=== PATIENT | male | born 1960 | race Two or more races ===

== ENCOUNTER 2025-01-14 18:31 | Inpatient (IN) | payer OTHER, MEDICAID ==
[~2025-01-14] VITALS: Ht 157.5 cm; Wt 50.9 kg
--- NOTE | 2025-01-14 20:08 | DVH ---
Procedure: XY NECK FOR SOFT TISSUE Exam Date: 01/14/2025 07:08 PM History: foreignbody Comparison Study: None Technique: Soft Tissue Neck: AP and lateral views, 3 images. Findings: No evidence of soft tissue swelling or radiopaque foreign body. Epiglottis appears normal. Vascular calcifications. Multilevel spondylosis without acute osseous finding. Unremarkable lung apices. Impression: 1. No radiographic abnormality of the neck soft tissues.
[2025-01-14 20:34] VITALS: PULSE 109; RESP 20; O2SAT 99
[2025-01-14] MEDS: GLUCAGON EMERG KIT 1mg/1ml IM ONE (20:58)
[2025-01-14] MEDS: SODIUM CHLORIDE 0.9% 1,000 ML IV ONE (20:58)
[2025-01-14 21:07] LABS: Hematocrit 41.1 % (41.0-53.0); Hemoglobin 13.8 g/dL (13.5-17.5); Mean Corpuscular Hemoglobin 31.9 pg (28.0-32.0); Mean Corpuscular Volume 94.8 fL (80.0-100.0); Nucleated Red Blood Cells % 0.1 %
--- NOTE | 2025-01-14 21:11 | ED.PDOC ---
History of Present Illness HPI Comments 64 y/o Vincentian speaking M presents with c/c of indigestion of foreign body, with associated throat irritation, difficulty swallowing, and mild shortness of breath. Patient reports on eating Tacos 2 hours ago when he began developing a sensation in his throat on the food item being stuck. Denial of any further acute symptoms. Upon arrival to ED triage, patient was found hypertensive and hyperglycemic at 164/52 and 350, respectively. Chief Complaint: Foreign Body Time Seen by MD: 21:00 Primary Care Provider: NONE Reviewed Notes: Nurses Notes, Medications, Allergies Allergies: Coded Allergies: NO KNOWN ALLERGIES (Unverified , 10/07/14) Information Source: Patient Mode of Arrival: Ambulatory Severity: Moderate Timing: Hours Duration: Since onset Prehospital treatment: None Past Medical History PAST MEDICAL HISTORY: DM, HTN Family History Family History: Unobtainable Social History Smoker: Non-Smoker Alcohol: Rarely Drugs: Denies Drug Use Lives In: Home All Other Systems: Reviewed and Negative (Comprehensive systems review obtained and negative except for what is stated in the HPI.) Physical Exam General Appearance: Moderate Distress HEENT: Normal ENT Inspection, Pharynx Normal, TMs Normal Neck: Full Range of Motion, Non-Tender, Normal, Normal Inspection Respiratory: Chest Non-Tender, Lungs Clear, No Accessory Muscle Use, No Respiratory Distress, Normal Breath Sounds Cardiovascular: No Edema, No JVD, No Murmur, No Gallop, Normal Peripheral Pulses, Regular Rate/Rhythm Breast Exam: Deferred Gastrointestinal: No Organomegaly, Non Tender, No Pulsatile Mass, Normal Bowel Sounds, Soft Genitalia: Deferred Pelvic: Deferred Rectal: Deferred Extremities: No calf tenderness, Normal capillary refill, Normal inspection, Normal range of motion, Non-tender, No pedal edema Musculoskeletal : Apperance: Normal Neurologic: Alert, graduate internship II-XII nml as Tested, No Motor Deficits, Normal Affect, Normal Mood, No Sensory Deficits Cerebellar Function: Normal Reflexes: Normal Skin: Dry, Normal Color, Warm Peripheral Pulses: 3+ Radial (R), 3+ Radial (L) Lymphatic: No Adenopathy Was a procedure done? Was a procedure done?: No Differential Dx Considerations may include: foreign body X-Ray, Labs, Meds, VS Vital Signs Date Time Temp Pulse Resp B/P (MAP) Pulse Ox O2 Delivery O2 Flow Rate FiO2 01/14/25 20:34 109 20 99 Room Air* 0 21 01/14/25 20:34 98.3 109 20 123/60 (81) 99 98.3 01/14/25 18:36 98.1 114 18 164/52 100 98.1 Lab Test 01/14/25 20:59 Range/Units White Blood Count 6.0 4.4-10.8 10^3/uL Red Blood Count 4.33 L 4.5-5.90 10^6/uL Hemoglobin 13.8 13.5-17.5 g/dL Hematocrit 41.1 41.0-53.0 % Mean Corpuscular Volume 94.8 80.0-100.0 fL Mean Corpuscular Hemoglobin 31.9 28.0-32.0 pg Mean Corpuscular Hemoglobin Concent 33.7 32.0-36.0 g/dL Red Cell Distribution Width 16.8 H 11.8-14.3 % Platelet Count 254 140-450 10^3/uL Mean Platelet Volume 7.7 6.9-10.8 fL Neutrophils (%) (Auto) 76.1 37.0-80.0 % Lymphocytes (%) (Auto) 16.9 10.0-50.0 % Monocytes (%) (Auto) 6.0 0.0-12.0 % Eosinophils (%) (Auto) 0.5 0.0-7.0 % Basophils (%) (Auto) 0.5 0.0-2.0 % Neutrophils # (Auto) 4.5 1.6-8.6 10 ^3/uL Lymphocytes # (Auto) 1.0 0.4-5.4 10 ^3/uL Monocytes # (Auto) 0.4 0-1.3 10 ^3/uL Eosinophils # (Auto) 0 0-0.8 10 ^3/uL Basophils # (Auto) 0 0-0.2 10 ^3/uL Nucleated Red Blood Cells 0.1 % Sodium Level 141 136-145 mmol/L Potassium Level 4.3 3.5-5.1 mmol/L Chloride Level 105 98-107 mmol/L Carbon Dioxide Level 19 L 20-31 mmol/L Anion Gap 17 H 5-15 Blood Urea Nitrogen 11 9-23 mg/dL Creatinine 1.09 0.700-1.30 mg/dL Glomerular Filtration Rate Calc 75 >90 mL/min BUN/Creatinine Ratio 10.1 10.0-20.0 Serum Glucose 510 *H 74-106 mg/dL Calcium Level 9.9 8.7-10.4 mg/dL Current Medications Medications (Trade) Dose Ordered Sig/Mallorie Route Start Time Stop Time Status Last Admin Sodium Chloride 1,000 ml @ 1,000 mls/hr Q1H ONCE IV 01/14/25 21:00 01/14/25 21:59 01/14/25 21:00 [place] [id number] Ph: [phone] DIAGNOSTIC IMAGING Diagnostic Imaging Report : [id number] Signed PATIENT: CIELO JOAQUIN ACCT: [id number] UNIT: [id number] : 1960 LOC: ER ROOM / BED: / AGE / SEX: 64 / M ADM STATUS: REG ER SERVICE 04 ORDERING PHYSICIAN: MOHAMUD CELAYA MD PROCEDURE(s): NECK - NECK FOR SOFT TISSUE REASON: foreignbody ORDER NUMBER(s): [id number], ACCESSION NUMBER(s): [id number] Procedure: XY NECK FOR SOFT TISSUE Exam Date: 01/14/2025 07:08 PM History: foreignbody Comparison Study: None Technique: Soft Tissue Neck: AP and lateral views, 3 images. Findings: No evidence of soft tissue swelling or radiopaque foreign body. Epiglottis appears normal. Vascular calcifications. Multilevel spondylosis without acute osseous finding. Unremarkable lung apices. Impression: 1. No radiographic abnormality of the neck soft tissues. ATED BY: MARY QUIROGA MD DICTATED DATE/TIME: 01/14/252004 SIGNED BY: MARY QUIROGA MD SIGNED DATE/TIME: 01/14/252004 CC: Patient alert. Vitals stable. Chest x-ray reviewed does not show any acute changes. Answering questions. Swallowing. No sign of distress. Blood sugar elevated. Establish intravenous access. Was given fluids. Was given insulin. As per foreign body sensation he was given glucagon. Explained to the patient. Continue monitoring. Time of 1ST Reevaluation: 21:30 Reevaluation 1ST: Unchanged Patient Education/Counseling: Diagnosis, Treatment, Need For Follow Up Family Education/Counseling: No Family Present SEPSIS Sepsis Screen Date sepsis recognized/suspect: Jan 14, 2025 Time Sepsis recognized/suspect: 2037 Recent Procedure: No On Antibiotic Therapy: No Respiratory Rate >20: No Heart Rate >90: Yes Temp<36 C (96.8 F) or >38.3 C: No SBP <90 or MAP <65 mmHG: No New Acute Mental Status Change: No Is the patient on CPAP, BIPAP,: No Physician Orders Neck For Soft Tissue (01/14/25 19:05) Sodium Chloride 0.9% (01/14/25 21:00) Vital Signs Date Time Temp Pulse Resp B/P (MAP) Pulse Ox O2 Delivery O2 Flow Rate FiO2 01/14/25 20:34 109 20 99 Room Air* 0 21 01/14/25 20:34 98.3 109 20 123/60 (81) 99 98.3 01/14/25 18:36 98.1 114 18 164/52 100 98.1 Laboratory Tests Test 01/14/25 20:59 White Blood Count 6.0 10^3/uL (4.4-10.8) Medications Medications Dose Ordered Sig/Mallorie Route Start Time Stop Time Status Last Admin Dose Admin Sodium Chloride 1,000 ml @ 1,000 mls/hr Q1H ONCE IV 01/14/25 21:00 01/14/25 21:59 01/14/25 21:00 Departure 1 Departure Time of Disposition: 21:32 Impression: Primary Impression: Uncontrolled diabetes mellitus Qualified Codes: E13.65 - Other specified diabetes mellitus with hyperglycemia Additional Impressions: HTN (hypertension) Qualified Codes: I10 - Essential (primary) hypertension Sensation of foreign body Disposition: ADMITTED INPATIENT Admit to: Med Surg Condition: Guarded Critical Care Note Critical Care Time?: Yes (90 min-critical care time only) Stability Stability form required: No Heart Score Heart Score: Heart Score Response (Comments) Value History N/A 0 EKG N/A 0 Age N/A 0 Risk Factors N/A 0 Troponin N/A 0 Total 0 I personally scribed for MOHAMUD CELAYA MD ([email or web address]) on 01/14/25 at 21:11. Electronically submitted by Celso Martel ([email or web address]). MOHAMUD CELAYA MD Jan 14, 2025 21:11
[2025-01-14 21:18] LABS: Chloride 105 mmol/L (98-107); Potassium 4.3 mmol/L (3.5-5.1); Sodium 141 mmol/L (136-145)
[2025-01-14 21:19] LABS: Anion Gap 17 (5-15); Calcium 9.9 mg/dL (8.7-10.4)
[2025-01-14 21:23] LABS: Carbon Dioxide 19 mmol/L (20-31)
[2025-01-14 21:24] LABS: BUN/Creatinine Ratio 10.1 (10.0-20.0); Blood Urea Nitrogen 11 mg/dL (9-23)
[2025-01-14 21:29] LABS: Glucose 510 mg/dL (74-106)
[2025-01-14] MEDS ORDERED: MORPHINE SULFATE INJ 2 MG/ml SYRG IV PRN (23:45)
[2025-01-14] MEDS ORDERED: NITROGLYCERIN 0.4 MG SL TAB SL PRN (23:45)
--- NOTE | 2025-01-14 23:52 | DVHHP2 ---
History of Present Illness History of Present Illness Patient is 64-year-old male with past medical history of diabetes mellitus type 2, hypertension, hyperlipidemia came to the hospital with a chief complaint of choking like sensation while eating at restaurants. At the time of evaluation in emergency department, patient's symptoms over the time improved, however abnormal laboratory findings including elevated blood sugar level at 510, anion gap elevated at 17, bicarbonate low at 19. As per patient he takes antihyperglycemic medication including Januvia and metformin, not taking insulin. As per patient he is compliant with medication, denying any other symptoms including fever, chills, chest pain, abdominal pain, bowel or bladder irregularity or any other symptoms. Past medical history: Diabetes mellitus type 2, hypertension, hyperlipidemia Past surgical history: As per patient he had some kind of liver cyst removal, not sure about precise diagnosis Personal history: Denies smoking or any kind of drug use Allergy: None Family history: None Home medication: Patient did not recall, as per EMR records, benzoate 100 mg p.o. as needed, Januvia 100 mg p.o., ferrous sulfate 325 mg p.o. b.i.d., metformin 1000 IU once daily, losartan 50 mg p.o. daily, Claritin 10 mg as needed, famotidine 20 mg two tablets, aspirin 81 mg p.o. daily, gabapentin 300 m g p.o., atorvastatin 40 mg p.o. daily, right big ulcers 10 mg tablet every day, ondansetron 4 mg p.o. as needed. Review of Systems Constitutional: No: Fever, Chills, Sweats, Weakness, Malaise, Other Eyes: No: Pain, Vision change, Conjunctivae inflammation, Eyelid inflammation, Other, Redness ENT: No: Ear pain, Ear discharge, Nose pain, Nose discharge, Nose congestion, Mouth pain, Mouth swelling, Throat pain, Throat swelling, Other Respiratory: No: Cough, Dry, Shortness of breath, SOB with excertion, Wheezing, Hemoptysis, Pleuritic Pain, Sputum, Wheezing, Other Cardiovascular: No: Chest Pain, Palpitations, Orthopnea, Paroxysmal Noc. Dyspn ea, Edema, Lt Headedness, Other Gastrointestinal: No: Nausea, Vomiting, Abdominal Pain, Diarrhea, Constipation, Melena, Hematochezia, Other Genitourinary: No Dysuria, No Frequency, No Incontinence, No Hematuria, No Retention, No Other Musculoskeletal: No: other, neck pain, shoulder pain, arm pain, back pain, hand pain, leg pain, foot pain Skin: No: Rash, Lesions, Jaundice, Bruising, Other Neurological: No: Weakness, Numbness, Incoordination, Change in speech, Confusion, Seizures, Other Allergies: Coded Allergies: NO KNOWN ALLERGIES (Unverified , 10/07/14) Medications Current Medications Medications Dose Ordered Sig/Mallorie Route Start Time Stop Time Status Last Admin Dose Admin Nitroglycerin 0.4 mg Q5MINP PRN SL 01/14/25 23:45 Morphine Sulfate 2 mg Q30M PRN IV 01/14/25 23:45 Exam Vital Signs Vital Signs Date Time Temp Pulse Resp B/P (MAP) Pulse Ox O2 Delivery O2 Flow Rate FiO2 01/14/25 23:15 98.3 99 14 123/58 (79) 99 98.3 01/14/25 20:34 Room Air* 0 21 Exam General Appearance: Cooperative. Moderately developed. Head Exam: Normal inspection Neck Exam: Normal inspection. Non-tender. Normal alignment Pulmonary/Respiratory: Chest non-tender. Clear bilateral breath sounds Cardiovascular/Chest: Regular rate and rhythm. No murmurs. No JVD. Peripheral Pulses: 2+ Radial (R). 2+ Radial (L). 2+ Pedal (R). 2+ Pedal (L) Abdominal Exam: Normal bowel sounds. Soft. Nontender. No hepatospenomegaly. No masses Ankle Exam: Negative ankle edema Lower extremities: Negative lower extremity edema Neuro/Mental Status: A&O x4. Coherent Thoughts/Psych: Normal thought pattern. Appropriate mood and affect. Good judgement and insight Appearance: In no acute distress Skin Exam: Normal inspection. Normal color. Warm. Dry Labs/Xrays Labs Test 01/14/25 20:59 Range/Units White Blood Count 6.0 4.4-10.8 10^3/uL Red Blood Count 4.33 L 4.5-5.90 10^6/uL Hemoglobin 13.8 13.5-17.5 g/dL Hematocrit 41.1 41.0-53.0 % Mean Corpuscular Volume 94.8 80.0-100.0 fL Mean Corpuscular Hemoglobin 31.9 28.0-32.0 pg Mean Corpuscular Hemoglobin Concent 33.7 32.0-36.0 g/dL Red Cell Distribution Width 16.8 H 11.8-14.3 % Platelet Count 254 140-450 10^3/uL Mean Platelet Volume 7.7 6.9-10.8 fL Neutrophils (%) (Auto) 76.1 37.0-80.0 % Lymphocytes (%) (Auto) 16.9 10.0-50.0 % Monocytes (%) (Auto) 6.0 0.0-12.0 % Eosinophils (%) (Auto) 0.5 0.0-7.0 % Basophils (%) (Auto) 0.5 0.0-2.0 % Neutrophils # (Auto) 4.5 1.6-8.6 10 ^3/uL Lymphocytes # (Auto) 1.0 0.4-5.4 10 ^3/uL Monocytes # (Auto) 0.4 0-1.3 10 ^3/uL Eosinophils # (Auto) 0 0-0.8 10 ^3/uL Basophils # (Auto) 0 0-0.2 10 ^3/uL Nucleated Red Blood Cells 0.1 % Sodium Level 141 136-145 mmol/L Potassium Level 4.3 3.5-5.1 mmol/L Chloride Level 105 98-107 mmol/L Carbon Dioxide Level 19 L 20-31 mmol/L Anion Gap 17 H 5-15 Blood Urea Nitrogen 11 9-23 mg/dL Creatinine 1.09 0.700-1.30 mg/dL Glomerular Filtration Rate Calc 75 >90 mL/min BUN/Creatinine Ratio 10.1 10.0-20.0 Serum Glucose 510 *H 74-106 mg/dL Calcium Level 9.9 8.7-10.4 mg/dL SEPSIS Sepsis Screen Date sepsis recognized/suspect: Jan 14, 2025 Time Sepsis recognized/suspect: 2037 Recent Procedure: No On Antibiotic Therapy: No Respiratory Rate >20: No Heart Rate >90: Yes Temp<36 C (96.8 F) or >38.3 C: No SBP <90 or MAP <65 mmHG: No New Acute Mental Status Change: No Is the patient on CPAP, BIPAP,: No Physician Orders Neck For Soft Tissue (01/14/25 19:05) Admit (01/14/25 23:37) Nitroglycerin Sublingual (Ntrostat Subli (01/14/25 23:45) Morphine Sulfate Injection (01/14/25 23:45) Oxygen By Nasal Cannula (01/14/25 23:37) Stat Ekg For Chest Pain (01/14/25 23:37) Notify Of Changes From Base (01/14/25 23:37) Polystyrene Bead Molder For 24 Hours (01/14/25 23:37) Emergency Dysrhythmia Protocol (01/14/25 23:37) Rhythm Strips Once Every Shift (01/14/25 23:37) B-Type Natriuretic Peptide (01/14/25 23:39) Complete Blood Count (01/15/25 04:00) Comprehensive Metabolic Panel (01/15/25 02:00) Beta-Hydroxybutyrate (01/14/25 23:45) Urinalysis (01/14/25 23:45) Troponin-I Hs (01/14/25 23:45) Thyroid Stimulating Hormone (01/14/25 23:45) Hemoglobin A1c (01/14/25 23:45) Chest Xray 1 View (01/14/25 23:45) Lactic Acid W/ Reflex Order (01/14/25 23:45) NS (01/15/25 00:00) Dextrose 50% Syringe (01/15/25 00:00) Phosphorus (01/14/25 23:48) Magnesium (01/14/25 23:48) Osmolality, Serum (01/14/25 23:48) Basic Metabolic Panel (01/14/25 23:48) Basic Metabolic Panel (01/15/25 05:48) Basic Metabolic Panel (01/15/25 11:48) Basic Metabolic Panel (01/15/25 17:48) Urinalysis (01/14/25 23:48) Neurological Assessment (01/14/25 23:48) Vs/Hemodynamics .PER UNIT PROTOCOL (01/14/25 23:48) Acetone (01/14/25 23:48) Insulin Lantus (Glargine) (Lantus) (01/15/25 00:00) Electrocardigram (01/14/25 23:48) Insulin Drip Protocol (01/14/25 ) Insulin Algorithm # 1 (01/15/25 00:00) Vital Signs Date Time Temp Pulse Resp B/P (MAP) Pulse Ox O2 Delivery O2 Flow Rate FiO2 01/14/25 23:15 98.3 99 14 123/58 (79) 99 98.3 01/14/25 20:34 109 20 99 Room Air* 0 21 01/14/25 20:34 98.3 109 20 123/60 (81) 99 98.3 01/14/25 18:36 98.1 114 18 164/52 100 98.1 Laboratory Tests Test 01/14/25 20:59 White Blood Count 6.0 10^3/uL (4.4-10.8) Medications Medications Dose Ordered Sig/Mallorie Route Start Time Stop Time Status Last Admin Dose Admin Sodium Chloride 1,000 ml @ 1,000 mls/hr Q1H ONCE IV 01/14/25 21:00 01/14/25 21:59 DC 01/14/25 21:00 1,000 MLS/HR Assessment/Plan Assessment/Plan Diabetic ketoacidosis Uncontrolled diabetes mellitus type 2 -IV fluid 1 L bolus was given in ED, continue NS 100 mg p.o. daily. -insulin Lantus 10 units subQ one time, serum glucose 510 mg/dL on 01/14/2025 -IV insulin drip as per DKA protocol. -Accu-Chek q.4 -BMPQ6 -Monitor electrolyte:> K 3.3 mg , Mg > 2 mg -Serum osmolality -Hb1c -NPO until hyperglycemia improve -Monitor anion gap Lactic acidosis ? Sepsis:unknown source of infection -IV cefepime and vancomycin -IV 500 ml bolus given twice -strict I&O -Blood &urine culture -repeat lactic acid Pulmonary vascular congestion, Rule out CHF -Echo cardiogram Hypertension -Hold antihypetensive drugs Dyslipidemia -Check lipid panel Disposition: ICU PUD prophylaxis with famotidine 20 mg po BID Goals of care discussed > 24 minutes, Full code status Plan discussed with Dr Osuna Plan discussed with: Patient, Other My Orders Orders - LORIN WALKER RESIDENT Procedure Category Date Status Time Admit ADMIT 01/14/25 Transmitted 23:37 Nitroglycerin PHA 01/14/25 In Process Sublingual (Ntrostat 23:45 Morphine Sulfate PHA 01/14/25 In Process Injection 23:45 Oxygen By Nasal RT 01/14/25 Transmitted Cannula 23:37 Stat Ekg For Chest MARISELA 01/14/25 In Process Pain 23:37 Notify Of Changes MARISELA 01/14/25 In Process From Base 23:37 Polystyrene Bead Molder For [facility] 01/14/25 In Process 24 Hours 23:37 Emergency Dysrhythmia [facility] 01/14/25 In Process Protocol 23:37 Rhythm Strips Once [facility] 01/14/25 In Process Every Shift 23:37 B-Type Natriuretic LAB 01/14/25 Verified Peptide 23:39 Complete Blood Count LAB 01/15/25 Verified 04:00 Comprehensive LAB 01/15/25 Verified Metabolic Panel 02:00 Beta-Hydroxybutyrate LAB 01/14/25 Verified 23:45 Urinalysis LAB 01/14/25 Verified 23:45 Troponin-I Hs LAB 01/14/25 Verified 23:45 Thyroid Stimulating LAB 01/14/25 Verified Hormone 23:45 Hemoglobin A1c LAB 01/14/25 Verified 23:45 Chest Xray 1 View XY 01/14/25 Verified 23:45 Lactic Acid W/ Reflex LAB 01/14/25 Verified Order 23:45 NS PHA 01/15/25 Verified 00:00 Dextrose 50% Syringe [facility] 01/15/25 Verified 00:00 Phosphorus LAB 01/14/25 Verified 23:48 Magnesium LAB 01/14/25 Verified 23:48 Osmolality, Serum LAB 01/14/25 Verified 23:48 Basic Metabolic Panel LAB 01/14/25 Verified 23:48 Basic Metabolic Panel LAB 01/15/25 Verified 05:48 Basic Metabolic Panel LAB 01/15/25 Verified 11:48 Basic Metabolic Panel LAB 01/15/25 Verified 17:48 Urinalysis LAB 01/14/25 Verified 23:48 Neurological [facility] 01/14/25 Verified Assessment 23:48 Vs/Hemodynamics [facility] 01/14/25 Verified 23:48 Acetone LAB 01/14/25 Verified 23:48 Insulin Lantus [facility] 01/15/25 Verified (Glargine) (Lantus) 00:00 Electrocardigram EKG 01/14/25 Verified 23:48 Insulin Drip Protocol [facility] 01/14/25 Verified Insulin Algorithm # 1 [facility] 01/15/25 Verified 00:00 Date of Service: Jan 14, 2025 Billing Provider: AMADEO HARRY MD Common Visit Codes: 06422-VAEUPPV INP/OBS CARE (HIGH) Secondary Visit Codes: 60128-[id number] CARE PLAN 30 MINUTES LORIN WALKER RESIDENT Jan 14, 2025 23:52
[2025-01-15] VITALS (33 sets, daily range): BP systolic 88–133; BP diastolic 51–74; PULSE 77–100; RESP 11–17; TEMP 97.7–98.4; O2SAT 98–100
[2025-01-15] MEDS: INSULIN LANTUS (GLARGINE) 1 /0.01ml (100units/ml) SC ONE (01:20)
[2025-01-15] MEDS: INSULIN DRIP 100 UNIT/100ML 100 ML IV SCH (01:41)
[2025-01-15] MEDS: SODIUM CHLORIDE 0.9% 1,000 ML IV SCH (01:56)
[2025-01-15] MEDS: ACCU-CHEK COMFORT CURVE STRIP VI SCH ×2 (01:56→07:39)
[2025-01-15 01:57] LABS: Magnesium 1.8 mg/dL (1.6-2.6)
[2025-01-15 02:00] LABS: Chloride 105 mmol/L (98-107); Potassium 4.3 mmol/L (3.5-5.1); Sodium 141 mmol/L (136-145)
--- NOTE | 2025-01-15 02:00 | DVH ---
CHEST RADIOGRAPH Indication: tachycardia Technique: 1 view Comparison: None FINDINGS: Lines and Tubes: None Lungs/Pleura: No focal consolidation, pleural effusion or pneumothorax. Cardiomediastinum: Unremarkable. Other: No acute osseous abnormality. IMPRESSION: 1. No acute cardiopulmonary abnormality.
[2025-01-15 02:01] LABS: Anion Gap 21 (5-15)
[2025-01-15 02:02] LABS: Calcium 10.0 mg/dL (8.7-10.4)
[2025-01-15 02:05] LABS: Carbon Dioxide 15 mmol/L (20-31)
[2025-01-15 02:06] LABS: BUN/Creatinine Ratio 10.2 (10.0-20.0); Blood Urea Nitrogen 11 mg/dL (9-23)
[2025-01-15 02:09] LABS: Glucose 511 mg/dL (74-106)
[2025-01-15 02:35] LABS: Hematocrit 36.5 % (41.0-53.0); Hemoglobin 12.5 g/dL (13.5-17.5); Mean Corpuscular Hemoglobin 32.0 pg (28.0-32.0); Mean Corpuscular Volume 93.1 fL (80.0-100.0); Nucleated Red Blood Cells % 0.1 %
[2025-01-15 02:50] LABS: Lactic Acid w/Reflex 2.8 mmol/L (0.4-2.0)
[2025-01-15] MEDS: SODIUM CHLORIDE 0.9% 500 ML IV ONE ×2 (03:54→06:30)
[2025-01-15] MEDS: CEFEPIME 2GM/50ML NS 50 ML IV ONE (04:00)
[2025-01-15 04:08] LABS: Urine Budding Yeast OCCASIONAL /hpf (None Seen); Urine Protein, UAD 1+ (Negative)
[2025-01-15 04:33] LABS: Albumin 3.7 g/dL (3.2-4.8); Anion Gap 13 (5-15); BUN/Creatinine Ratio 14.3 (10.0-20.0); Bilirubin, Total 0.9 mg/dL (0.2-1.0); Blood Urea Nitrogen 13 mg/dL (9-23); Calcium 9.0 mg/dL (8.7-10.4); Potassium 4.4 mmol/L (3.5-5.1); Sodium 143 mmol/L (136-145); Total Protein 7.1 g/dL (5.7-8.2)
[2025-01-15 04:39] LABS: Alanine Aminotransferase 65 U/L (7-40); Alkaline Phosphatase 153 U/L (46-116); Carbon Dioxide 19 mmol/L (20-31); Chloride 111 mmol/L (98-107); Glucose 348 mg/dL (74-106)
[2025-01-15 05:56] LABS: INR 1.12 (0.9-1.15); Partial Thromboplastin Time 27.6 SEC (24.5-34.5); Prothrombin Time 11.7 sec (9.3-11.8)
[2025-01-15 05:58] LABS: Potassium 4.7 mmol/L (3.5-5.1); Sodium 145 mmol/L (136-145)
[2025-01-15 05:59] LABS: Anion Gap 13 (5-15); Chloride 113 mmol/L (98-107)
[2025-01-15 06:05] LABS: BUN/Creatinine Ratio 12.2 (10.0-20.0); Blood Urea Nitrogen 10 mg/dL (9-23)
[2025-01-15 06:08] LABS: Calcium 8.7 mg/dL (8.7-10.4); Carbon Dioxide 19 mmol/L (20-31); Glucose 259 mg/dL (74-106)
[2025-01-15] MEDS ORDERED: VANCOMYCIN PER PHARMACY 0 MG IV SCH (06:30)
[2025-01-15] MEDS: MAGNESIUM OXIDE 400 MG TAB PO ONE (06:30)
[2025-01-15] MEDS ORDERED: DEXTROSE (50%) 50ML SYRG IV PRN ×2 (06:45)
[2025-01-15 06:58] LABS: Base Excess -4.3 mmol/L (-2.0-3.0)
--- NOTE | 2025-01-15 07:25 | DVH ---
CHEST RADIOGRAPH Indication: RESP DISTRESS Technique: Single frontal view of the chest was obtained COMPARISON: XY CHEST XRAY 1 VIEW on DOS: 01/15/25 FINDINGS: Lines and Tubes: None Lungs: Congestion Pleura: No effusion.No pneumothorax. Cardiomediastinal contours: Unremarkable Bones: Unremarkable IMPRESSION: Increased interstital prominence. This may represent pulmonary vascular congestion and/or viral pneum onia. Clinical correlation advised.
[2025-01-15] MEDS: VANCOMYCIN 1.25GM/250ML 250 ML IV ONE (07:39)
[2025-01-15] MEDS: InsuLIN REG 1unit/0.01ml Soln (100units/ml) SC SCH (07:53)
[2025-01-15] MEDS ORDERED: ACCU-CHEK COMFORT CURVE STRIP VI SCH (08:00)
[2025-01-15 09:17] LABS: Acetaminophen < 2.0 UG/ML (10.0-20.0); Salicylate < 3.0 mg/dL (-30)
[2025-01-15 09:24] LABS: Potassium 5.0 mmol/L (3.5-5.1)
[2025-01-15 09:25] LABS: Anion Gap 18 (5-15)
[2025-01-15 09:26] LABS: Calcium 8.8 mg/dL (8.7-10.4)
[2025-01-15 09:28] LABS: Carbon Dioxide 15 mmol/L (20-31); Chloride 114 mmol/L (98-107); Sodium 147 mmol/L (136-145)
[2025-01-15 09:31] LABS: BUN/Creatinine Ratio 18.8 (10.0-20.0); Blood Urea Nitrogen 16 mg/dL (9-23)
[2025-01-15 09:32] LABS: Glucose 268 mg/dL (74-106)
[2025-01-15 09:47] LABS: Lactic Acid w/Reflex 2.2 mmol/L (0.4-2.0)
[2025-01-15] MEDS ORDERED: SITA100T7 PO (11:48)
[2025-01-15] MEDS ORDERED: FAMO-12 PO (11:48)
[2025-01-15] MEDS ORDERED: ATOR40TA52 PO (11:48)
[2025-01-15] MEDS ORDERED: LOSA-534 PO (11:48)
[2025-01-15] MEDS ORDERED: METF-370 PO (11:48)
[2025-01-15] MEDS ORDERED: ASPI81CH45 PO (11:48)
[2025-01-15 12:34] LABS: Potassium 3.7 mmol/L (3.5-5.1); Sodium 144 mmol/L (136-145)
[2025-01-15 12:35] LABS: Anion Gap 11 (5-15); Carbon Dioxide 21 mmol/L (20-31); Chloride 112 mmol/L (98-107)
[2025-01-15 12:36] LABS: Calcium 8.0 mg/dL (8.7-10.4)
[2025-01-15 12:40] LABS: BUN/Creatinine Ratio 20.0 (10.0-20.0); Blood Urea Nitrogen 12 mg/dL (9-23)
[2025-01-15 12:42] LABS: Glucose 161 mg/dL (74-106)
--- NOTE | 2025-01-15 12:48 | DVHPNRES ---
Progress Note Date Seen: Jan 15, 2025 Resident Creating Document: ARIAN ROBLES RESIDENT Has the PT tested + for MRSA If YES, has PT been informed?: No Medical Necessity Reason Pt with a Central, PICC or Fol: No Subjective Review of Systems Patient is 64-year-old male with past medical history of diabetes mellitus type 2, hypertension, hyperlipidemia came to the hospital with a chief complaint of choking like sensation while eating at restaurants. he reports that there was pain in his chest and a feeling of food being stuck that he coughed out when he was in the emergency department at [facility]. he reports that it was tacos that he coughed out. At the time of evaluation in emergency department, abnormal laboratory findings were seen including elevated blood sugar level at 510, anion gap elevated at 17, bicarbonate low at 19. As per patient he takes antihyperglycemic medication including Januvia and metformin, not taking insulin. Pt states he is compliant with medication, but he does complain that the larger pills( most probably metformin) is hard for him to swallow. he states that in his past, 2 years ago he had a EGD done because he was throwing up blood and reports that there was some ulcers back then. Since then he stopped drinking alcohol. Patient denies fever, chills, chest pain, abdominal pain, bowel or bladder irregularity or any other symptoms. Past medical history: Diabetes mellitus type 2, hypertension, hyperlipidemia , Past surgical history: As per patient he had some kind of liver cyst removal, not sure about precise diagnosis, patient reports of cystic mass on his neck 9- 10 years ago that was drained Personal history: Denies smoking or any kind of drug use . He stopped drinking 2 years ago but before that he used to drink 20 beers per day for as long as he can remember Allergy: None Family history: None Home medication: Patient did not recall, as per EMR records, benzoate 100 mg p.o. as needed, Januvia 100 mg p.o., ferrous sulfate 325 mg p.o. b.i.d., metformin 1000 IU once daily, losartan 50 mg p.o. daily, Claritin 10 mg as needed, famotidine 20 mg two tablets, aspirin 81 mg p.o. daily, gabapentin 300 mg p.o., atorvastatin 40 mg p.o. daily, right big ulcers 10 mg tablet every day, ondansetron 4 mg p.o. as needed. ROS: 01/15/2025: Patient was seen and examined by me at the bedside today. Patient has no new active complaints. he is able to swallow and has no chest pain, nausea or any episodes of vomiting. We have placed him in a cardiac and diabetic diet. He has been downgraded from the ICU to [facility]. GI consult has been placed regarding his dysphagia on multiple occasions. Objective vital signs Vital Sign Date Time Temp Pulse Resp B/P (MAP) Pulse Ox O2 Delivery O2 Flow Rate FiO2 01/15/25 11:00 80 14 121/62 (81) 99 01/15/25 10:00 Room Air* 0 21 01/15/25 08:00 98.1 98.1 Total Intake and Output 01/14/25 01/14/25 01/15/25 15:00 23:00 07:00 Intake Total 1667.5 ml Output Total 250 ml Balance 1417.5 ml medications Current Medications Medications Dose Ordered Sig/Mallorie Route Start Time Stop Time Status Last Admin Dose Admin Nitroglycerin 0.4 mg Q5MINP PRN SL 01/14/25 23:45 Morphine Sulfate 2 mg Q30M PRN IV 01/14/25 23:45 Sodium Chloride 1,000 ml @ 100 mls/hr Q10H IV 01/15/25 00:00 01/15/25 10:11 100 MLS/HR Vancomycin HCl 0 ml @ 0 mls/hr UD IV 01/15/25 06:30 Diagnostic Test (Pha) 1 strip IQ4HR 01/15/25 08:00 01/15/25 12:16 1 STRIP Insulin Human Regular IQ4HR SC 01/15/25 08:00 01/15/25 12:20 2 UNITS Dextrose 50 ml UD PRN IV 01/15/25 06:45 Pantoprazole Sodium 40 mg DAILY IV 01/16/25 10:00 Losartan Potassium 50 mg DAILY PO 01/16/25 10:00 Atorvastatin Calcium 40 mg HS PO 01/15/25 22:00 Examination Pt is lying on bed General Appearance: Alert, Oriented X3, Cooperative, Not in acute distress HEENT: Atraumatic, Mucous membranes moist/pink Respiratory: Clear to auscultation, Normal air movement, No added sounds Cardiovascular: Regular rate, Normal S1, Normal S2, No murmurs Abdominal: Active bowel sounds, Soft, no distention, no tenderness Extremities: No edema, Normal pulses, No tenderness/swelling Skin: No Significant rash, except past surgical scars Neuro: Normal speech, sensorimotor deficits none Psych/Mental Status: Mental status NL, Mood NL Nurse was there as partner integration planner during examination laboratory and microbiology Laboratory Tests 01/15/25 12:03 01/15/25 02:18 Test 01/15/25 12:03 Range/Units Serum Glucose 161 H 74-106 mg/dL Labs and/or images reviewed: Labs reviewed by me, Image(s) reviewed by me Problem List/Assessment/Plan Problem List/Assessment/Plan #Diabetic ketoacidosis #Uncontrolled diabetes mellitus type 2, A1c 11.1 -IV fluid 1 L bolus was given in ED, continue NS 100 mg p.o. daily. -insulin Lantus 10 units subQ one time, serum glucose 510 mg/dL on 01/14/2025 -IV insulin drip as per DKA protocol. -Accu-Chek q.4 -BMPQ6 -Monitor electrolyte:> K 3.3 mg , Mg > 2 mg -Serum osmolality -Diabetic and cardiac diet -Monitor anion gap -GI consult for dysphagia on multiple occasions, pending #Hypertension -Losartan 50 mg po daily #Dyslipidemia - atorvastatin 40 mg p.o. daily Gi prophylaxis: protonix 40mg IV daily Diet: Cardiac and diabetic diet Goals of care discussed with the patient for more than 27 minutes: Full code status Case discussed with Dr. Jean. patient and nurse. Plan discussed with: Patient, Other (rn) My Orders My Orders Orders - ARIAN ROBLES Procedure Category Date Status Time Consistent DIET 01/15/25 Transmitted Carb(Ccho)Diabetes Lunch Pantoprazole PHA 01/16/25 In Process (Protonix) 10:00 Losartan Tablet PHA 01/16/25 In Process (Cozaar Tablet) 10:00 Atorvastatin (Lipitor) PHA 01/15/25 In Process 22:00 * Gi Dvh Wedding Makeup Artist CONS 01/15/25 Transmitted 12:36 Transfer Orders XFER 01/15/25 Transmitted 12:36 Communication Order ORDERS 01/15/25 Transmitted 12:36 Date of Service: Jan 15, 2025 Billing Provider: SUBHA JEAN MD Common Visit Codes: [id number] INP/OBS CARE(HIGH) ARIAN ROBLES Jan 15, 2025 12:48 SUBHA JEAN MD Jan 19, 2025 19:07
--- NOTE | 2025-01-15 14:34 | DVHSR ---
APPROVED REPORT EXAM: Two-dimensional and M-mode echocardiogram with Doppler and color Doppler. Blood Pressure: 88/52 mmHg INDICATION CHF? RISK FACTORS Height: 5'2", Weight: 110 DIMENSIONS LVDd3.8 (3.8-5.7cm)LA (2D)4.0 (1.9-4.0cm)Aortic Root3.1 (2.0-3.7cm) LVDs2.5 (2.5-4.0cm)LA (MM) (1.9-4.0cm)Aortic Cusp Exc1.6 (1.5-2.0cm) EF (%) 60.0 (55-70%)Rt. Atrium3.4 (1.9-4.0cm)Asc. Aorta cm IVSd1.0 (0.7-1.1cm)RV (D)3.4 (1.8-2.4cm) PWd1.0 (0.7-1.1cm) Mitral Valve MitralMitral Stenosis E wave0.97m/sMV Mean GR.mmHg A wave0.89m/sMV Peak GR.mmHg E/A ratio1.12D MVAcm2 DECEL [id number] 1/2 Timems Aortic Valve Aortic ValveAortic Stenosis V11.03m/Junaid Mean GR.3mmHg V21.18m/Junaid Peak GR.6mmHg LVOT Diameter1.8 (1.8-2.4cm)Doppler AVA2.22cm2 Pulmonic Valve V20.88m/s Tricuspid Valve TR Velocity2.51m/s [id number] Conclusion LV EF IS 70% MILD MVP MILD MR NORMAL TV,PV AND AORTIC VALVE NO EFFUSION NORMAL RV FUNTION
[2025-01-15 18:46] LABS: Sodium 143 mmol/L (136-145)
[2025-01-15 18:47] LABS: Anion Gap 12 (5-15); Carbon Dioxide 21 mmol/L (20-31); Chloride 110 mmol/L (98-107); Potassium 3.4 mmol/L (3.5-5.1)
[2025-01-15 18:48] LABS: Calcium 7.8 mg/dL (8.7-10.4)
[2025-01-15 18:53] LABS: BUN/Creatinine Ratio 18.5 (10.0-20.0); Blood Urea Nitrogen 12 mg/dL (9-23)
[2025-01-15 18:56] LABS: Glucose 181 mg/dL (74-106)
--- NOTE | 2025-01-15 20:01 | DVHINCON2 ---
Date of service: Jan 15, 2025 History of Present Illness Per HPI - "64-year-old male with past medical history of diabetes mellitus type 2, hypertension, hyperlipidemia came to the hospital with a chief complaint of choking like sensation while eating at restaurants. At the time of evaluation in emergency department, patient's symptoms over the time improved, however abnormal laboratory findings including elevated blood sugar level at 510, anion gap elevated at 17, bicarbonate low at 19. As per patient he takes antihyperglycemic medication including Januvia and metformin, not taking insulin. As per patient he is compliant with medication, denying any other symptoms including fever, chills, chest pain, abdominal pain, bowel or bladder irregularity or any other symptoms." GI service consulted for dysphagia evaluation. He has uncontrolled DM, HbA1C 11.1. He reports dysphagia to solids in the past, denies currently. Hx obtained with help od Occitan interpretation. Never had EGD. Denies GERD/N/V Past Medical History Reviewed Past Surgical History Reviewed Family History: Cardiac pacemaker G8 SISTER Cardiovascular disease G8 BROTHER G8 SISTER Diabetes mellitus G8 MOTHER FH: breast cancer G8 SISTER FH: myocardial infarction G8 BROTHER Allergies: Coded Allergies: NO KNOWN ALLERGIES (Unverified , 10/07/14) Home Meds Reported Medications Famotidine (Famotidine) 20 Mg Tab, 20 MG PO BID PRN for FOR STOMACH DISTRESS for 30 Days, MG 01/15/25 Metformin Hydrochloride (Metformin Hcl) 500 Mg Tab, 1000 MG PO BIDWM for 30 Days, MG 01/15/25 Sitagliptin Phosphate (Januvia) 100 Mg Tab, 1 TAB PO DAILY, #30 TAB 5 Refills 01/15/25 Losartan Potassium (Losartan Potassium) 50 Mg Tab, 1 TAB PO DAILY, #90 TAB 1 Refill 01/15/25 Atorvastatin Calcium (ATORVASTATIN CALCIUM) 40 Mg Tab, 1 TAB PO DAILY, #90 TAB 1 Refill 01/15/25 Aspirin (Aspirin Childrens) 81 Mg Chw, 81 MG PO DAILY, TAB.CHEW 01/15/25 Current Medications Current Medications Medications (Trade) Dose Ordered Sig/Mallorie Route PRN Reason Start Time Stop Time Status Last Admin Nitroglycerin (Ntrostat Sublingual) 0.4 mg Q5MINP PRN SL FOR CHEST PAIN 01/14/25 23:45 Morphine Sulfate 2 mg Q30M PRN IV FOR CHEST PAIN 01/14/25 23:45 Sodium Chloride 1,000 ml @ 100 mls/hr Q10H IV 01/15/25 00:00 01/15/25 10:11 Insulin Human (Reg)/Sodium Chloride 100 ml @ 0.5 mls/hr Q24H IV 01/15/25 00:00 01/15/25 06:35 DC 01/15/25 01:41 Dextrose 50 ml UD PRN IV SEE CURRENT ALGORITHM or SCALE 01/15/25 00:00 01/15/25 09:08 DC Diagnostic Test (Pha) (Accu-Chek Comfort Curve T) 1 strip Q90MIN 01/15/25 02:00 01/15/25 06:35 DC 01/15/25 06:15 Diagnostic Test (Pha) (Accu-Chek Comfort Curve T) 1 strip Q2HR 01/15/25 08:00 01/15/25 07:30 DC Vancomycin HCl 0 ml @ 0 mls/hr UD IV 01/15/25 06:30 Diagnostic Test (Pha) (Accu-Chek Comfort Curve T) 1 strip IQ4HR 01/15/25 08:00 01/15/25 16:08 Insulin Human Regular (InsuLIN R) IQ4HR SC 01/15/25 08:00 01/15/25 16:24 Dextrose 50 ml UD PRN IV Blood Sugar LESS THAN 60 01/15/25 06:45 Pantoprazole Sodium (Protonix) 40 mg DAILY IV 01/16/25 10:00 Losartan Potassium (Cozaar Tablet) 50 mg DAILY PO 01/16/25 10:00 Atorvastatin Calcium (Lipitor) 40 mg HS PO 01/15/25 22:00 Review of Systems 14 point ROS negative except mentioned above Vital Signs Vital Signs Date Time Temp Pulse Resp B/P (MAP) Pulse Ox O2 Delivery O2 Flow Rate FiO2 01/15/25 18:00 84 01/15/25 18:00 17 99 Room Air* 0 21 01/15/25 18:00 110/59 (76) 01/15/25 16:00 98.2 98.2 Physical Exam GE: in no acute distress CVS: S1S2+ Lungs: clear Abdomen: soft, nondistended, nontender, BS+ Labs/Diagnostic Data Labs Test 01/15/25 17:55 01/15/25 16:17 01/15/25 08:34 01/15/25 06:54 Range/Units Sodium Level 143 136-145 mmol/L Potassium Level 3.4 L 3.5-5.1 mmol/L Chloride Level 110 H 98-107 mmol/L Carbon Dioxide Level 21 20-31 mmol/L Anion Gap 12 5-15 Blood Urea Nitrogen 12 9-23 mg/dL Creatinine 0.65 L 0.700-1.30 mg/dL Glomerular Filtration Rate Calc 105 >90 mL/min BUN/Creatinine Ratio 18.5 10.0-20.0 Serum Glucose 181 H 74-106 mg/dL Calcium Level 7.8 L 8.7-10.4 mg/dL POC Glucose 212 H 70-106 mg/dl Lactic Acid Level 2.2 *H 0.4-2.0 mmol/L Blood Gas Specimen Type Arterial Blood Gas Sample Site Right radial Blood Gas Patient Temperature 37.0 Arterial Blood Date Drawn [id number] Arterial Blood pH 7.461 H 7.350-7.450 Arterial Blood Partial Pressure CO2 26.2 L 35.0-48.0 mmHg Arterial Blood Partial Pressure O2 93.7 83.0-108.0 mmHg Arterial Blood HCO3 18.3 L 21.0-28.0 mmol/L Arterial Blood Oxygen Saturation 96.8 94.0-98.0 % Arterial Blood Base Excess -4.3 L -2.0-3.0 mmol/L Arterial Blood Oxyhemoglobin 96.2 94.0-98.0 % Arterial Blood Carboxyhemoglobin 0.2 L 0.5-1.5 % Arterial Blood Methemoglobin 0.4 0.0-1.5 % Sylvester Test Yes Blood Gas Total Hemoglobin 11.40 L 13.5-17.5 g/dL Blood Gas Modality Room air FiO2 % 21.0 Test 01/15/25 04:49 01/15/25 04:40 01/15/25 03:34 01/15/25 03:00 Range/Units Prothrombin Time 11.7 9.3-11.8 sec Prothrombin Time INR 1.12 0.9-1.15 Activated Partial Thromboplast Time 27.6 24.5-34.5 SEC Beta-Hydroxybutyric Acid 0.351 < 0.4 mmol/L Salicylates Level < 3.0 -30 mg/dL Acetaminophen Level < 2.0 L 10.0-20.0 UG/ML Magnesium Level 1.7 1.6-2.6 mg/dL Total Bilirubin 0.9 0.2-1.0 mg/dL Aspartate Amino Transferase (AST) 44 H 13-40 U/L Alanine Aminotransferase (ALT) 65 H 7-40 U/L Alkaline Phosphatase 153 H 46-116 U/L Total Protein 7.1 5.7-8.2 g/dL Albumin 3.7 3.2-4.8 g/dL Urine Color Yellow Yellow Urine Clarity Clear Clear Urine pH 5.5 5.0-9.0 Urine Specific [place] 1.035 1.001-1.035 Urine Protein 1+ H Negative Urine Ketones Trace Negative Urine Blood Negative Negative /uL Urine Nitrite Negative Negative Urine Bilirubin Negative Negative Urine Urobilinogen Normal Negative mg/dL Urine Leukocyte Esterase Negative Negative /uL Urine RBC <1 0 - 3 /hpf Urine Microscopic WBC < 1 0-3 /HPF Urine Squamous Epithelial Cells Few <5 /hpf Urine Bacteria None seen None Seen /hpf Urine Yeast (Budding) Occasional None Seen /hpf Urine Glucose 4+ H Normal mg/dL Test 01/15/25 02:18 01/14/25 20:59 Range/Units White Blood Count 4.5 4.4-10.8 10^3/uL Red Blood Count 3.92 L 4.5-5.90 10^6/uL Hemoglobin 12.5 L 13.5-17.5 g/dL Hematocrit 36.5 #L 41.0-53.0 % Mean Corpuscular Volume 93.1 80.0-100.0 fL Mean Corpuscular Hemoglobin 32.0 28.0-32.0 pg Mean Corpuscular Hemoglobin Concent 34.4 32.0-36.0 g/dL Red Cell Distribution Width 16.5 H 11.8-14.3 % Platelet Count 195 140-450 10^3/uL Mean Platelet Volume 7.6 6.9-10.8 fL Neutrophils (%) (Auto) 83.3 H 37.0-80.0 % Lymphocytes (%) (Auto) 12.6 10.0-50.0 % Monocytes (%) (Auto) 3.6 0.0-12.0 % Eosinophils (%) (Auto) 0.1 0.0-7.0 % Basophils (%) (Auto) 0.4 0.0-2.0 % Neutrophils # (Auto) 3.8 1.6-8.6 10 ^3/uL Lymphocytes # (Auto) 0.6 0.4-5.4 10 ^3/uL Monocytes # (Auto) 0.2 0-1.3 10 ^3/uL Eosinophils # (Auto) 0 0-0.8 10 ^3/uL Basophils # (Auto) 0 0-0.2 10 ^3/uL Nucleated Red Blood Cells 0.1 % Hemoglobin A1c 11.1 H <5.7 % A1C Serum Osmolality 331 H 278-298 mOsm/kg Phosphorus Level 4.8 2.4-5.1 mg/dL Troponin I High Sensitivity < 3 L </=54 ng/L B-Type Natriuretic Peptide 36.73 0-100 pg/mL Thyroid Stimulating Hormone (TSH) 2.84 0.55-4.78 uIU/mL Microbiology Date/Time Source Procedure Growth Status 01/15/25 03:08 Nose MRSA Screen - Final Complete Assessment #Dysphagia, suspect esophagitis in the setting of uncontrolled diabetes #Elevated liver enzymes #DKA, improved #Uncontrolled Diabetes -Protonix 40 mg BID -Check acute hep panel and US abd to eval liver. Suspect fatty liver -Check barium esophagogram -EGD as out pt. GI clinic f/u as out pt. Tolerting diet well, denies any dysphagia during my encounter -care plan discussed with pt and RN in detail Thank you for the consult Plan discussed with: Patient, Other CATHLEEN ORR MD Jan 15, 2025 20:01
[2025-01-15] MEDS: ATORVASTATIN 20 MG TAB PO SCH (21:13)
[2025-01-16] VITALS (7 sets, daily range): BP systolic 101–136; BP diastolic 60–84; PULSE 78–90; RESP 15–18; TEMP 97.8–98.3; O2SAT 96–98
--- NOTE | 2025-01-16 08:33 | DVH ---
INDICATION: elevated liver enzymes TECHNIQUE: Multiple real-time sonographic images were obtained of the right upper quadrant. COMPARISON: None FINDINGS: The liver demonstrates homogenous echotexture without focal mass lesions. The liver measure s 14 cm. There is no intrahepatic or extrahepatic ductal dilatation. The common duct measures 4 mm. The gallbladder is without evidence of stone or sludge. The gallbladder wall measures 2 mm and is wi thin normal limits. The right kidney measures 9.9 cm. The right kidney is normal in contour, size, and shape. The echoge nicity is normal. There is no hydronephrosis. The pancreas is not well visualized due to overlying bowel gas. IMPRESSION: No sonographic evidence of gallstones or acute cholecystitis.
[2025-01-16 09:06] LABS: Hematocrit 32.2 % (41.0-53.0); Hemoglobin 10.8 g/dL (13.5-17.5); Mean Corpuscular Hemoglobin 32.0 pg (28.0-32.0); Mean Corpuscular Volume 95.4 fL (80.0-100.0); Nucleated Red Blood Cells % 0.1 %
[2025-01-16] MEDS: PANTOPRAZOLE 40 MG/10 ML VIAL INJ IV SCH (09:12)
[2025-01-16] MEDS: LOSARTAN POTASSIUM 50 MG TAB PO SCH (09:12)
[2025-01-16] MEDS: POTASSIUM CHL 20 Meq TABLET PO ONE (09:12)
[2025-01-16 09:22] LABS: Sodium 142 mmol/L (136-145)
[2025-01-16 09:23] LABS: Anion Gap 10 (5-15); Carbon Dioxide 21 mmol/L (20-31)
[2025-01-16 09:28] LABS: BUN/Creatinine Ratio 11.1 (10.0-20.0); Calcium 7.6 mg/dL (8.7-10.4); Chloride 111 mmol/L (98-107); Potassium 3.4 mmol/L (3.5-5.1)
[2025-01-16 09:29] LABS: Total Protein 5.9 g/dL (5.7-8.2)
[2025-01-16 09:30] LABS: Alkaline Phosphatase 125.0 U/L (46-116); Bilirubin, Total 1.0 mg/dL (0.2-1.0); Blood Urea Nitrogen 7 mg/dL (9-23); Glucose 213 mg/dL (74-106)
[2025-01-16 09:31] LABS: Alanine Aminotransferase 54.0 U/L (7-40); Albumin 3.1 g/dL (3.2-4.8); Bilirubin, Direct 0.3 mg/dL (<0.3)
[2025-01-16] MEDS ORDERED: PANTOPRAZOLE 40 MG/10 ML VIAL INJ IV SCH (10:00)
--- NOTE | 2025-01-16 14:49 | DVHPNRES ---
Progress Note Date Seen: Jan 16, 2025 Resident Creating Document: ARIAN ROBLES RESIDENT Has the PT tested + for MRSA If YES, has PT been informed?: No Medical Necessity Reason Pt with a Central, PICC or Fol: No Subjective Review of Systems Dustin Barron is 64-year-old male with past medical history of diabetes mellitus type 2, hypertension, hyperlipidemia came to the hospital with a chief complaint of choking like sensation while eating at restaurants. he reports that there was pain in his chest and a feeling of food being stuck that he coughed out when he was in the emergency department at [facility]. he reports that it was tacos that he coughed out. At the time of evaluation in emergency department, abnormal laboratory findings were seen including elevated blood sugar level at 510, anion gap elevated at 17, bicarbonate low at 19. As per patient he takes antihyperglycemic medication including Januvia and metformin, not taking insulin. Pt states he is compliant with medication, but he does complain that the larger pills( most probably metformin) is hard for him to swallow. he states that in his past, 2 years ago he had a EGD done because he was throwing up blood and reports that there was some ulcers back then. Since then he stopped drinking alcohol. Patient denies fever, chills, chest pain, abdominal pain, bowel or bladder irregularity or any other symptoms. Past medical history: Diabetes mellitus type 2, hypertension, hyperlipidemia , Past surgical history: As per patient he had some kind of liver cyst removal, not sure about precise diagnosis, patient reports of cystic mass on his neck 9- 10 years ago that was drained Personal history: Denies smoking or any kind of drug use . He stopped drinking 2 years ago but before that he used to drink 20 beers per day for as long as he can remember Allergy: None Family history: None Home medication: Patient did not recall, as per EMR records, benzoate 100 mg p.o. as needed, Januvia 100 mg p.o., ferrous sulfate 325 mg p.o. b.i.d., metformin 1000 IU once daily, losartan 50 mg p.o. daily, Claritin 10 mg as needed, famotidine 20 mg two tablets, aspirin 81 mg p.o. daily, gabapentin 300 mg p.o., atorvastatin 40 mg p.o. daily, right big ulcers 10 mg tablet every day, ondansetron 4 mg p.o. as needed. ROS: 01/15/2025: Patient was seen and examined by me at the bedside today. Patient has no new active complaints. he is able to swallow and has no chest pain, nausea or any episodes of vomiting. We have placed him in a cardiac and diabetic diet. He has been downgraded from the ICU to [facility]. GI consult has been placed regarding his dysphagia on multiple occasions. 01/16/2025: Patient was seen and examined by me at the bedside today. Patient has no new active complaints. GI consultation suggested a hepatic panel, pending results and ultrasound of the liver which came back normal. Protonix from once a day has been changed to twice a day. Vancomycin was stopped. Potassium was repleted 20 mEq per orally. We started the patient on insulin Lantus 10 units and insulin lispro 3 units before meals. Moderate sliding scale insulin was switched to mild sliding scale insulin today. We will continue to monitor blood sugar levels. Possible discharge tomorrow Objective vital signs Vital Sign Date Time Temp Pulse Resp B/P (MAP) Pulse Ox O2 Delivery O2 Flow Rate FiO2 01/16/25 13:00 98.3 78 16 106/67 (80) 98 98.3 01/15/25 20:00 Room Air* 0 21 Total Intake and Output 01/15/25 01/15/25 01/16/25 15:00 23:00 07:00 Intake Total 1050 ml 540 ml 700 ml Output Total 250 ml 600 ml Balance 1050 ml 290 ml 100 ml medications Current Medications Medications Dose Ordered Sig/Mallorie Route Start Time Stop Time Status Last Admin Dose Admin Nitroglycerin 0.4 mg Q5MINP PRN SL 01/14/25 23:45 Morphine Sulfate 2 mg Q30M PRN IV 01/14/25 23:45 Sodium Chloride 1,000 ml @ 100 mls/hr Q10H IV 01/15/25 00:00 01/16/25 11:58 100 MLS/HR Losartan Potassium 50 mg DAILY PO 01/16/25 10:00 01/16/25 09:12 50 MG Atorvastatin Calcium 40 mg HS PO 01/15/25 22:00 01/15/25 21:13 40 MG Pantoprazole Sodium 40 mg BID IV 01/16/25 07:00 01/16/25 09:12 40 MG Insulin Glargine 10 units HS SC 01/16/25 22:00 Insulin Human Lispro 3 units AC SC 01/16/25 17:00 Insulin Human Lispro AC SC 01/16/25 17:00 Diagnostic Test (Pha) 1 strip ACHS 01/16/25 17:00 Examination Pt is lying on bed General Appearance: Alert, Oriented X3, Cooperative, Not in acute distress HEENT: Atraumatic, Mucous membranes moist/pink Respiratory: Clear to auscultation, Normal air movement, No added sounds Cardiovascular: Regular rate, Normal S1, Normal S2, No murmurs Abdominal: Active bowel sounds, Soft, no distention, no tenderness Extremities: No edema, Normal pulses, No tenderness/swelling Skin: No Significant rash, except past surgical scars Neuro: Normal speech, sensorimotor deficits none Psych/Mental Status: Mental status NL, Mood NL Nurse was there as clothes model during examination #Diabetic ketoacidosis #Uncontrolled diabetes mellitus type 2, A1c 11.1 -IV fluid 1 L bolus was given in ED, continue NS 100 mg p.o. daily. -insulin Lantus 10 units subQ one time, serum glucose 510 mg/dL on 01/14/2025 -IV insulin drip as per DKA protocol. -Accu-Chek q.4 -BMPQ6 -Monitor electrolyte:> K 3.3 mg , Mg > 2 mg -Serum osmolality -Diabetic and cardiac diet -Monitor anion gap -GI consult for dysphagia on multiple occasions, suggested Protonix b.i.d., hepatic panel, pending and ultrasound liver-normal -Insulin Lantus 10 units and insulin lispro 3 units before each meal started on 01/16 -moderate sliding scale insulin switch to mild sliding scale insulin #Hypertension -Losartan 50 mg po daily #Dyslipidemia - atorvastatin 40 mg p.o. daily Gi prophylaxis: protonix 40mg IV daily Diet: Cardiac and diabetic diet Goals of care discussed with the patient for more than 27 minutes: Full code status Case discussed with Dr. Jean. patient and nurse. #Dysphagia #Elevated liver enzymes #DKA, improved #Uncontrolled Diabetes laboratory and microbiology Laboratory Tests 01/16/25 08:25 Test 01/16/25 08:25 Range/Units Serum Glucose 213 H 74-106 mg/dL Microbiology Date/Time Source Procedure Growth Status 01/15/25 04:49 Blood Blood Culture - Preliminary NO GROWTH AFTER 24 HOURS OF INCUBATION. Resulted 01/15/25 03:08 Nose MRSA Screen - Final Complete 01/15/25 03:00 Voided Urine Urine Culture - Preliminary Resulted Labs and/or images reviewed: Labs reviewed by me, Image(s) reviewed by me Problem List/Assessment/Plan Problem List/Assessment/Plan #Diabetic ketoacidosis #Uncontrolled diabetes mellitus type 2, A1c 11.1 -IV fluid 1 L bolus was given in ED, continue NS 100 mg p.o. daily. -insulin Lantus 10 units subQ one time, serum glucose 510 mg/dL on 01/14/2025 -IV insulin drip as per DKA protocol. -Accu-Chek q.4 -BMPQ6 -Monitor electrolyte:> K 3.3 mg , Mg > 2 mg -Serum osmolality -Diabetic and cardiac diet -Monitor anion gap -GI consult for dysphagia on multiple occasions, pending #Hypertension -Losartan 50 mg po daily #Dyslipidemia - atorvastatin 40 mg p.o. daily Gi prophylaxis: protonix 40mg IV daily Diet: Cardiac and diabetic diet Goals of care discussed with the patient for more than 27 minutes: Full code status Case discussed with Dr. Carrizales, patient and nurse. Plan discussed with: Patient My Orders My Orders Orders - ARIAN ROBLES RESIDENT Procedure Category Date Status Time LIVER US 01/16/25 Resulted 06:53 Pantoprazole PHA 01/16/25 In Process (Protonix) 07:00 Stool Occult Blood LAB 01/16/25 Logged 12:39 Insulin Lantus PHA 01/16/25 In Process (Glargine) (Lantus) 22:00 Insulin Lispro PHA 01/16/25 In Process (Human) (Humalog) 17:00 Date of Service: Jan 16, 2025 Billing Provider: SARANYA CARRIZALES MD Common Visit Codes: [id number] INP/OBS CARE(HIGH) ARIAN ROBLES RESIDENT Jan 16, 2025 14:49 SARANYA CARRIZALES MD Jan 16, 2025 18:27
[2025-01-16] MEDS: INSULIN LISPRO (HUMAN) 100 UNITS/ML ML SC SCH ×2 (17:55→17:56)
[2025-01-16] MEDS: ACCU-CHEK COMFORT CURVE STRIP VI SCH (17:56)
--- NOTE | 2025-01-16 18:40 | DVHINCON2 ---
Date of service: Jan 16, 2025 Referring Physician Transfer of care for medical management. Reason for Consultation Contracted provider for [facility]. Notified by insurance group to take over care. History of Present Illness Francesco Rosado is a 64-year-old male with a Past Medical History pertinent for Type 2 DM, Hypertension and Hyperlipidemia who presented to the hospital with complaint of choking like sensation while eating at restaurant on 01/14/2025. While in ED, patient's symptoms improved. Initial labs were remarkable for elevated blood sugar level at 510, Anion gap elevated at 17, bicarbonate low at 19. Patient was subsequently admitted to ICU. Gap closed and patient has since been downgraded. HgbA1C was 11.1. Patient was noted with elevated liver enzymes with suspected fatty liver disease. History of ETOH use. Follow up Liver US was normal. Patient complained of dysphagia on multiple occasions. GI is following. Patient was also found with pulmonary vascular congestion. Currently pending Echocardiogram. Denies any current chest pain or shortness of breath. Allergies: Coded Allergies: NO KNOWN ALLERGIES (Unverified , 10/07/14) Home Meds Reported Medications Famotidine (Famotidine) 20 Mg Tab, 20 MG PO BID PRN for FOR STOMACH DISTRESS for 30 Days, MG 01/15/25 Metformin Hydrochloride (Metformin Hcl) 500 Mg Tab, 1000 MG PO BIDWM for 30 Days, MG 01/15/25 Sitagliptin Phosphate (Januvia) 100 Mg Tab, 1 TAB PO DAILY, #30 TAB 5 Refills 01/15/25 Losartan Potassium (Losartan Potassium) 50 Mg Tab, 1 TAB PO DAILY, #90 TAB 1 Refill 01/15/25 Atorvastatin Calcium (ATORVASTATIN CALCIUM) 40 Mg Tab, 1 TAB PO DAILY, #90 TAB 1 Refill 01/15/25 Aspirin (Aspirin Childrens) 81 Mg Chw, 81 MG PO DAILY, TAB.CHEW 01/15/25 Current Medications Current Medications Medications (Trade) Dose Ordered Sig/Mallorie Route PRN Reason Start Time Stop Time Status Last Admin Pantoprazole Sodium (Protonix) 40 mg DAILY IV 01/16/25 10:01/16/25 06:57 DC Losartan Potassium (Cozaar Tablet) 50 mg DAILY PO 01/16/25 10:00 01/16/25 09:12 Atorvastatin Calcium (Lipitor) 40 mg HS PO 01/15/25 22:00 01/15/25 21:13 Pantoprazole Sodium (Protonix) 40 mg BID IV 01/16/25 07:00 01/16/25 09:12 Insulin Glargine (Lantus) 10 units HS SC 01/16/25 22:00 Insulin Human Lispro (HumaLOG) 3 units AC SC 01/16/25 17:00 01/16/25 17:55 Insulin Human Lispro (HumaLOG) AC SC 01/16/25 17:00 01/16/25 17:56 Diagnostic Test (Pha) (Accu-Chek Comfort Curve T) 1 strip ACHS 01/16/25 17:00 01/16/25 17:56 Family History: Cardiac pacemaker G8 SISTER Cardiovascular disease G8 BROTHER G8 SISTER Diabetes mellitus G8 MOTHER FH: breast cancer G8 SISTER FH: myocardial infarction G8 BROTHER Review of Systems 14 point ROS negative except mentioned in HPI. H&P Exam Vital Signs/I&O Vital Sign Date Time Temp Pulse Resp B/P (MAP) Pulse Ox O2 Delivery O2 Flow Rate FiO2 01/16/25 17:00 98.1 83 17 132/84 (100) 98 98.1 01/16/25 07:30 Room Air* 0 21 Intake and Output 01/15/25 01/16/25 19:00 07:00 Intake Total 1350 ml 940 ml Output Total 250 ml 600 ml Balance 1100 ml 340 ml Intake Oral 0 ml 940 ml IV Total 1350 ml Output Urine Total 250 ml 600 ml Physical Exam Vitals and nursing notes reviewed. General Appearance: In no acute distress. Head Exam: NC/AT. Pulmonary/Respiratory: Chest non-tender. Clear bilateral breath sounds Cardiovascular/Chest: Regular rate and rhythm. No murmurs. Abdominal Exam: Normal bowel sounds. Soft. Nontender. No hepatospenomegaly. No masses Lower extremities: Negative lower extremity edema Neuro/Mental Status: A&O x4. Coherent Thoughts/Psych: Appropriate mood and affect. Skin Exam: Normal inspection. Normal color. Warm. Dry Labs/Diagnostic Data Labs/Diagnostic Data Laboratory Tests Test 01/16/25 16:50 01/16/25 11:50 01/16/25 08:28 01/16/25 08:25 Range/Units POC Glucose 180 H 239 H 233 H 70-106 mg/dl White Blood Count 2.8 L 4.4-10.8 10^3/uL Red Blood Count 3.38 L 4.5-5.90 10^6/uL Hemoglobin 10.8 L 13.5-17.5 g/dL Hematocrit 32.2 #L 41.0-53.0 % Mean Corpuscular Volume 95.4 80.0-100.0 fL Mean Corpuscular Hemoglobin 32.0 28.0-32.0 pg Mean Corpuscular Hemoglobin Concent 33.5 32.0-36.0 g/dL Red Cell Distribution Width 16.6 H 11.8-14.3 % Platelet Count 155 140-450 10^3/uL Mean Platelet Volume 7.4 6.9-10.8 fL Neutrophils (%) (Auto) 51.4 37.0-80.0 % Lymphocytes (%) (Auto) 39.2 10.0-50.0 % Monocytes (%) (Auto) 7.2 0.0-12.0 % Eosinophils (%) (Auto) 1.7 0.0-7.0 % Basophils (%) (Auto) 0.5 0.0-2.0 % Neutrophils # (Auto) 1.4 L 1.6-8.6 10 ^3/uL Lymphocytes # (Auto) 1.1 0.4-5.4 10 ^3/uL Monocytes # (Auto) 0.2 0-1.3 10 ^3/uL Eosinophils # (Auto) 0 0-0.8 10 ^3/uL Basophils # (Auto) 0 0-0.2 10 ^3/uL Nucleated Red Blood Cells 0.1 % Sodium Level 142 136-145 mmol/L Potassium Level 3.4 L 3.5-5.1 mmol/L Chloride Level 111 H 98-107 mmol/L Carbon Dioxide Level 21 20-31 mmol/L Anion Gap 10 5-15 Blood Urea Nitrogen 7 L 9-23 mg/dL Creatinine 0.63 L 0.700-1.30 mg/dL Glomerular Filtration Rate Calc 106 >90 mL/min BUN/Creatinine Ratio 11.1 10.0-20.0 Serum Glucose 213 H 74-106 mg/dL Lactic Acid Level 1.6 0.4-2.0 mmol/L Calcium Level 7.6 L 8.7-10.4 mg/dL Total Bilirubin 1.0 0.2-1.0 mg/dL Direct Bilirubin 0.3 <0.3 mg/dL Aspartate Amino Transferase (AST) 55 H 13-40 U/L Alanine Aminotransferase (ALT) 54 H 7-40 U/L Alkaline Phosphatase 125 H 46-116 U/L Total Protein 5.9 5.7-8.2 g/dL Albumin 3.1 L 3.2-4.8 g/dL Random Vancomycin Level 3.7 L 5-10 ug/mL Test 01/16/25 03:27 01/16/25 01:19 01/15/25 20:47 01/15/25 17:55 Range/Units POC Glucose 116 H 128 H 270 H 70-106 mg/dl Sodium Level 143 136-145 mmol/L Potassium Level 3.4 L 3.5-5.1 mmol/L Chloride Level 110 H 98-107 mmol/L Carbon Dioxide Level 21 20-31 mmol/L Anion Gap 12 5-15 Blood Urea Nitrogen 12 9-23 mg/dL Creatinine 0.65 L 0.700-1.30 mg/dL Glomerular Filtration Rate Calc 105 >90 mL/min BUN/Creatinine Ratio 18.5 10.0-20.0 Serum Glucose 181 H 74-106 mg/dL Calcium Level 7.8 L 8.7-10.4 mg/dL Test 01/15/25 16:17 01/15/25 12:17 01/15/25 12:03 01/15/25 08:34 Range/Units POC Glucose 212 H 140 H 70-106 mg/dl Sodium Level 144 136-145 mmol/L Potassium Level 3.7 3.5-5.1 mmol/L Chloride Level 112 H 98-107 mmol/L Carbon Dioxide Level 21 20-31 mmol/L Anion Gap 11 5-15 Blood Urea Nitrogen 12 9-23 mg/dL Creatinine 0.60 L 0.700-1.30 mg/dL Glomerular Filtration Rate Calc 107 >90 mL/min BUN/Creatinine Ratio 20.0 10.0-20.0 Serum Glucose 161 H 74-106 mg/dL Calcium Level 8.0 L 8.7-10.4 mg/dL Lactic Acid Level 2.2 *H 0.4-2.0 mmol/L Test 01/15/25 07:51 01/15/25 06:54 01/15/25 06:14 01/15/25 04:49 Range/Units POC Glucose 135 H 165 H 70-106 mg/dl Blood Gas Specimen Type Arterial Blood Gas Sample Site Right radial Blood Gas Patient Temperature 37.0 Arterial Blood Date Drawn [id number] Arterial Blood pH 7.461 H 7.350-7.450 Arterial Blood Partial Pressure CO2 26.2 L 35.0-48.0 mmHg Arterial Blood Partial Pressure O2 93.7 83.0-108.0 mmHg Arterial Blood HCO3 18.3 L 21.0-28.0 mmol/L Arterial Blood Oxygen Saturation 96.8 94.0-98.0 % Arterial Blood Base Excess -4.3 L -2.0-3.0 mmol/L Arterial Blood Oxyhemoglobin 96.2 94.0-98.0 % Arterial Blood Carboxyhemoglobin 0.2 L 0.5-1.5 % Arterial Blood Methemoglobin 0.4 0.0-1.5 % Sylvester Test Yes Blood Gas Total Hemoglobin 11.40 L 13.5-17.5 g/dL Blood Gas Modality Room air FiO2 % 21.0 Prothrombin Time 11.7 9.3-11.8 sec Prothrombin Time INR 1.12 0.9-1.15 Activated Partial Thromboplast Time 27.6 24.5-34.5 SEC Sodium Level 145 136-145 mmol/L Potassium Level 4.7 3.5-5.1 mmol/L Chloride Level 113 H 98-107 mmol/L Carbon Dioxide Level 19 L 20-31 mmol/L Anion Gap 13 5-15 Blood Urea Nitrogen 10 9-23 mg/dL Creatinine 0.82 0.700-1.30 mg/dL Glomerular Filtration Rate Calc 97 >90 mL/min BUN/Creatinine Ratio 12.2 10.0-20.0 Serum Glucose 259 H 74-106 mg/dL Lactic Acid Level 3.3 *H 0.4-2.0 mmol/L Calcium Level 8.7 8.7-10.4 mg/dL Test 01/15/25 04:42 01/15/25 04:40 01/15/25 03:34 01/15/25 03:06 Range/Units POC Glucose 223 H 320 H 70-106 mg/dl Sodium Level 147 H 143 136-145 mmol/L Potassium Level 5.0 4.4 3.5-5.1 mmol/L Chloride Level 114 H 111 H 98-107 mmol/L Carbon Dioxide Level 15 L 19 L 20-31 mmol/L Anion Gap 18 H 13 5-15 Blood Urea Nitrogen 16 13 9-23 mg/dL Creatinine 0.85 0.91 0.700-1.30 mg/dL Glomerular Filtration Rate Calc 96 94 >90 mL/min BUN/Creatinine Ratio 18.8 14.3 10.0-20.0 Serum Glucose 268 H 348 #H 74-106 mg/dL Calcium Level 8.8 9.0 8.7-10.4 mg/dL Beta-Hydroxybutyric Acid 0.351 < 0.4 mmol/L Salicylates Level < 3.0 -30 mg/dL Acetaminophen Level < 2.0 L 10.0-20.0 UG/ML Magnesium Level 1.7 1.6-2.6 mg/dL Total Bilirubin 0.9 0.2-1.0 mg/dL Aspartate Amino Transferase (AST) 44 H 13-40 U/L Alanine Aminotransferase (ALT) 65 H 7-40 U/L Alkaline Phosphatase 153 H 46-116 U/L Total Protein 7.1 5.7-8.2 g/dL Albumin 3.7 3.2-4.8 g/dL Test 01/15/25 03:00 01/15/25 02:18 01/15/25 01:15 01/14/25 20:59 Range/Units Urine Color Yellow Yellow Urine Clarity Clear Clear Urine pH 5.5 5.0-9.0 Urine Specific [place] 1.035 1.001-1.035 Urine Protein 1+ H Negative Urine Ketones Trace Negative Urine Blood Negative Negative /uL Urine Nitrite Negative Negative Urine Bilirubin Negative Negative Urine Urobilinogen Normal Negative mg/dL Urine Leukocyte Esterase Negative Negative /uL Urine RBC <1 0 - 3 /hpf Urine Microscopic WBC < 1 0-3 /HPF Urine Squamous Epithelial Cells Few <5 /hpf Urine Bacteria None seen None Seen /hpf Urine Yeast (Budding) Occasional None Seen /hpf Urine Glucose 4+ H Normal mg/dL White Blood Count 4.5 6.0 4.4-10.8 10^3/uL Red Blood Count 3.92 L 4.33 L 4.5-5.90 10^6/uL Hemoglobin 12.5 L 13.8 13.5-17.5 g/dL Hematocrit 36.5 #L 41.1 41.0-53.0 % Mean Corpuscular Volume 93.1 94.8 80.0-100.0 fL Mean Corpuscular Hemoglobin 32.0 31.9 28.0-32.0 pg Mean Corpuscular Hemoglobin Concent 34.4 33.7 32.0-36.0 g/dL Red Cell Distribution Width 16.5 H 16.8 H 11.8-14.3 % Platelet Count 195 254 140-450 10^3/uL Mean Platelet Volume 7.6 7.7 6.9-10.8 fL Neutrophils (%) (Auto) 83.3 H 76.1 37.0-80.0 % Lymphocytes (%) (Auto) 12.6 16.9 10.0-50.0 % Monocytes (%) (Auto) 3.6 6.0 0.0-12.0 % Eosinophils (%) (Auto) 0.1 0.5 0.0-7.0 % Basophils (%) (Auto) 0.4 0.5 0.0-2.0 % Neutrophils # (Auto) 3.8 4.5 1.6-8.6 10 ^3/uL Lymphocytes # (Auto) 0.6 1.0 0.4-5.4 10 ^3/uL Monocytes # (Auto) 0.2 0.4 0-1.3 10 ^3/uL Eosinophils # (Auto) 0 0 0-0.8 10 ^3/uL Basophils # (Auto) 0 0 0-0.2 10 ^3/uL Nucleated Red Blood Cells 0.1 0.1 % Lactic Acid Level 2.8 *H 0.4-2.0 mmol/L POC Glucose 451 *H 70-106 mg/dl Sodium Level 141 136-145 mmol/L Potassium Level 4.3 3.5-5.1 mmol/L Chloride Level 105 98-107 mmol/L Carbon Dioxide Level 15 L 20-31 mmol/L Anion Gap 21 H 5-15 Blood Urea Nitrogen 11 9-23 mg/dL Creatinine 1.08 0.700-1.30 mg/dL Glomerular Filtration Rate Calc 76 >90 mL/min BUN/Creatinine Ratio 10.2 10.0-20.0 Serum Glucose 511 *H 74-106 mg/dL Hemoglobin A1c 11.1 H <5.7 % A1C Serum Osmolality 331 H 278-298 mOsm/kg Calcium Level 10.0 8.7-10.4 mg/dL Phosphorus Level 4.8 2.4-5.1 mg/dL Magnesium Level 1.8 1.6-2.6 mg/dL Troponin I High Sensitivity < 3 L </=54 ng/L B-Type Natriuretic Peptide 36.73 0-100 pg/mL Beta-Hydroxybutyric Acid 0.707 H < 0.4 mmol/L Thyroid Stimulating Hormone (TSH) 2.84 0.55-4.78 uIU/mL Microbiology Date/Time Source Procedure Growth Status 01/15/25 03:08 Nose MRSA Screen - Final Complete Assessment Diabetic ketoacidosis, improved Uncontrolled Type 2 DM Hypertension Dyslipidemia Plan/Recommendation Admitted to inpatient. GI consulted. Protonix increased to twice daily. Recommended for EGD as outpatient. Daily lab monitoring; electrolyte replacement prn. Continued on Lantus 10 units and Lispro 3 units before meals. Mild insulin sliding scale. Accu-checks. Echocardiogram ordered/pending. Home medications resumed. Cardiac/Diabetic diet. Additional plan as per the hospital course. Plan discussed with: Patient, Other (RN) DEBORA YOUSIF DO Jan 16, 2025 18:40
[2025-01-16] MEDS: INSULIN LANTUS (GLARGINE) 1 /0.01ml (100units/ml) SC SCH (21:59)
[2025-01-17] VITALS (8 sets, daily range): BP systolic 109–147; BP diastolic 62–78; PULSE 69–85; RESP 17–20; TEMP 97.5–98.2; O2SAT 96–99
[2025-01-17 07:18] LABS: Hematocrit 31.0 % (41.0-53.0); Hemoglobin 10.9 g/dL (13.5-17.5); Mean Corpuscular Hemoglobin 32.2 pg (28.0-32.0); Mean Corpuscular Volume 91.5 fL (80.0-100.0); Nucleated Red Blood Cells % 0.2 %
[2025-01-17 07:27] LABS: Potassium 3.5 mmol/L (3.5-5.1); Sodium 142 mmol/L (136-145)
[2025-01-17 07:28] LABS: Anion Gap 10 (5-15)
[2025-01-17 07:34] LABS: Magnesium 1.7 mg/dL (1.6-2.6)
[2025-01-17 07:40] LABS: BUN/Creatinine Ratio 8.5 (10.0-20.0); Blood Urea Nitrogen < 5 mg/dL (9-23); Calcium 8.0 mg/dL (8.7-10.4); Carbon Dioxide 20 mmol/L (20-31); Chloride 112 mmol/L (98-107); Glucose 169 mg/dL (74-106)
--- NOTE | 2025-01-17 20:56 | DVHPN2 ---
Progress Note - Dictate Date Seen: Jan 17, 2025 Has the PT tested + for MRSA If YES, has PT been informed?: No Medical Necessity Reason Pt with a Central, PICC or Fol: No Subjective Patient was seen and evaluated in follow up. No acute events overnight. No new complaints. BS's are ranging in the 150s-200s. K wnl. Echocardiogram reported LV EF 70%; mild MVP; mild MR; normal TV, PV and aortic valve; no effusion; normal RV function. vital signs Vital Sign Date Time Temp Pulse Resp B/P (MAP) Pulse Ox O2 Delivery O2 Flow Rate FiO2 01/17/25 17:00 97.9 79 18 125/75 (92) 99 97.9 01/17/25 08:16 Room Air* 0 21 Total Intake and Output 01/16/25 01/16/25 01/17/25 15:00 23:00 07:00 Intake Total 1000 ml 975 ml 700 ml Output Total 1000 ml Balance 1000 ml -25 ml 700 ml medications Current Medications Medications Dose Ordered Sig/Mallorie Route Start Time Stop Time Status Last Admin Dose Admin Nitroglycerin 0.4 mg Q5MINP PRN SL 01/14/25 23:45 Morphine Sulfate 2 mg Q30M PRN IV 01/14/25 23:45 Sodium Chloride 1,000 ml @ 100 mls/hr Q10H IV 01/15/25 00:00 01/17/25 15:13 100 MLS/HR Losartan Potassium 50 mg DAILY PO 01/16/25 10:00 01/17/25 09:52 50 MG Atorvastatin Calcium 40 mg HS PO 01/15/25 22:00 01/16/25 21:57 40 MG Pantoprazole Sodium 40 mg BID IV 01/16/25 07:00 01/17/25 09:51 40 MG Insulin Glargine 10 units HS SC 01/16/25 22:00 01/16/25 21:59 10 UNITS Insulin Human Lispro 3 units AC SC 01/16/25 17:00 01/17/25 16:43 3 UNITS Insulin Human Lispro AC SC 01/16/25 17:00 01/17/25 16:47 2 UNITS Diagnostic Test (Pha) 1 strip ACHS 01/16/25 17:00 01/17/25 16:43 1 STRIP objective Vitals and nursing notes reviewed. General Appearance: In no acute distress. Head Exam: NC/AT. Pulmonary/Respiratory: Chest non-tender. Clear bilateral breath sounds Cardiovascular/Chest: Regular rate and rhythm. No murmurs. Abdominal Exam: Normal bowel sounds. Soft. Nontender. No hepatospenomegaly. No masses Lower extremities: Negative lower extremity edema Neuro/Mental Status: A&O x4. Coherent Thoughts/Psych: Appropriate mood and affect. Skin Exam: Normal inspection. Normal color. Warm. Dry laboratory and microbiology Laboratory Tests 01/17/25 06:18 Test 01/17/25 06:18 Range/Units Serum Glucose 169 H 74-106 mg/dL Problem List Diabetic ketoacidosis, improved Uncontrolled Type 2 DM Hypertension Dyslipidemia Assessment/Plan Continue current supportive medical care. GI consulted. Continued on Protonix 40 mg IV BID. Recommended for EGD as outpatient. Daily lab monitoring; electrolyte replacement prn. Continued on Lantus 10 units and Lispro 3 units before meals. Mild insulin sliding scale. Accu-checks. IVFs with NS. Home medications resumed. Cardiac/Diabetic diet. Additional plan as per the hospital course. Dietary Evaluation Review Comments: 1. Downgrade food texture to Mechanical soft CCHO-60 Cardiac diet 2. Monitor PO intake 3. provide oral supplement glucerna BID if PO intake <75% Expected Outcomes/Goals: gradual wt gain Controlled DM Plan discussed with: Patient, Other (RN) DEBORA YOUSIF DO Jan 17, 2025 20:56
--- NOTE | 2025-01-17 23:00 | DVHPN2 ---
Progress Note - Dictate Date Seen: Jan 17, 2025 Has the PT tested + for MRSA If YES, has PT been informed?: No Medical Necessity Reason Pt with a Central, PICC or Fol: No Subjective No new complaints Pt is tolerating diet Denies N/V/abd pain or dysphagia at this time vital signs Vital Sign Date Time Temp Pulse Resp B/P (MAP) Pulse Ox O2 Delivery O2 Flow Rate FiO2 01/17/25 21:00 97.9 85 18 133/78 (96) 97 97.9 01/17/25 08:16 Room Air* 0 21 Total Intake and Output 01/16/25 01/16/25 01/17/25 15:00 23:00 07:00 Intake Total 1000 ml 975 ml 700 ml Output Total 1000 ml Balance 1000 ml -25 ml 700 ml medications Current Medications Medications Dose Ordered Sig/Mallorie Route Start Time Stop Time Status Last Admin Dose Admin Nitroglycerin 0.4 mg Q5MINP PRN SL 01/14/25 23:45 Morphine Sulfate 2 mg Q30M PRN IV 01/14/25 23:45 Sodium Chloride 1,000 ml @ 100 mls/hr Q10H IV 01/15/25 00:00 01/17/25 22:10 100 MLS/HR Losartan Potassium 50 mg DAILY PO 01/16/25 10:00 01/17/25 09:52 50 MG Atorvastatin Calcium 40 mg HS PO 01/15/25 22:00 01/17/25 22:01 40 MG Pantoprazole Sodium 40 mg BID IV 01/16/25 07:00 01/17/25 22:01 40 MG Insulin Glargine 10 units HS ND 01/16/25 22:00 01/17/25 22:02 10 UNITS Insulin Human Lispro 3 units AC ND 01/16/25 17:00 01/17/25 16:43 3 UNITS Insulin Human Lispro AC ND 01/16/25 17:00 01/17/25 16:47 2 UNITS Diagnostic Test (Pha) 1 strip ACHS 01/16/25 17:00 01/17/25 22:02 1 STRIP objective GE: in no acute distress CVS: S1S2+ Lungs: clear Abdomen: soft, nondistended, nontender, BS+ laboratory and microbiology Laboratory Tests 01/17/25 06:18 Test 01/17/25 06:18 Range/Units Serum Glucose 169 H 74-106 mg/dL Problems(with codes): (1) Dysphagia (2) Sensation of foreign body (3) Cervical lymphadenopathy Prognosis Assessment plan At this time patient's symptoms of foreign body sensation and dysphagia have resolved Patient is tolerating diet and does not want any further workup Continue Protonix 40 mg p.o. daily Outpatient follow up with GI Services for ongoing management and to consider elective panendoscopy Once again thank you for allowing GI to participate in the care of this patient Dietary Evaluation Review Comments: 1. Downgrade food texture to Mechanical soft CCHO-60 Cardiac diet 2. Monitor PO intake 3. provide oral supplement glucerna BID if PO intake <75% Expected Outcomes/Goals: gradual wt gain Controlled DM Plan discussed with: Patient ANDRES VIDAL MD Jan 17, 2025 23:00
[2025-01-18 01:00] VITALS: BP 143/83; PULSE 87; RESP 18; TEMP 97.5; O2SAT 97
[2025-01-18 05:00] VITALS: BP 129/73; PULSE 72; RESP 18; TEMP 97.8; O2SAT 96
[2025-01-18 08:00] VITALS: RESP 17; O2SAT 98
[2025-01-18 09:00] VITALS: BP 116/62; PULSE 77; RESP 17; TEMP 97.7; O2SAT 97
[2025-01-18 13:00] VITALS: BP 137/77; PULSE 79; RESP 20; TEMP 98; O2SAT 97
[2025-01-18 16:20] VITALS: BP 148/75; PULSE 80; RESP 20; TEMP 98.2; O2SAT 97
--- NOTE | 2025-01-18 18:48 | DVHPN2 ---
Progress Note - Dictate Date Seen: Jan 18, 2025 Has the PT tested + for MRSA If YES, has PT been informed?: No Medical Necessity Reason Pt with a Central, PICC or Fol: No Subjective Patient was seen and evaluated in follow up. No acute events overnight. No new complaints. Tolerating diet Denies N/V/abdominal pain or dysphagia at this time vital signs Vital Sign Date Time Temp Pulse Resp B/P (MAP) Pulse Ox O2 Delivery O2 Flow Rate FiO2 01/18/25 16:20 98.2 80 20 148/75 (99) 97 98.2 01/18/25 08:00 Room Air* 0 21 Total Intake and Output 01/17/25 01/17/25 01/18/25 15:00 23:00 07:00 Intake Total 920 ml 1200 ml Output Total 1200 ml 1200 ml Balance -280 ml 0 ml medications Current Medications Medications Dose Ordered Sig/Mallorie Route Start Time Stop Time Status Last Admin Dose Admin Nitroglycerin 0.4 mg Q5MINP PRN SL 01/14/25 23:45 Morphine Sulfate 2 mg Q30M PRN IV 01/14/25 23:45 Sodium Chloride 1,000 ml @ 100 mls/hr Q10H IV 01/15/25 00:00 01/18/25 09:56 100 MLS/HR Losartan Potassium 50 mg DAILY PO 01/16/25 10:00 01/18/25 09:56 50 MG Atorvastatin Calcium 40 mg HS PO 01/15/25 22:00 01/17/25 22:01 40 MG Pantoprazole Sodium 40 mg BID IV 01/16/25 07:00 01/18/25 09:56 40 MG Insulin Glargine 10 units HS SC 01/16/25 22:00 01/17/25 22:02 10 UNITS Insulin Human Lispro 3 units AC SC 01/16/25 17:00 01/18/25 17:13 3 UNITS Insulin Human Lispro AC SC 01/16/25 17:00 01/18/25 17:14 1 UNITS Diagnostic Test (Pha) 1 strip ACHS 01/16/25 17:00 01/18/25 17:14 1 STRIP objective Vitals and nursing notes reviewed. General Appearance: In no acute distress. Head Exam: NC/AT. Pulmonary/Respiratory: Chest non-tender. Clear bilateral breath sounds Cardiovascular/Chest: Regular rate and rhythm. No murmurs. Abdominal Exam: Normal bowel sounds. Soft. Nontender. No hepatospenomegaly. No masses Lower extremities: Negative lower extremity edema Neuro/Mental Status: A&O x4. Coherent Thoughts/Psych: Appropriate mood and affect. Skin Exam: Normal inspection. Normal color. Warm. Dry laboratory and microbiology Laboratory Tests 01/17/25 06:18 Test 01/17/25 06:18 Range/Units Serum Glucose 169 H 74-106 mg/dL Problem List Diabetic ketoacidosis, improved Uncontrolled Type 2 DM Hypertension Dyslipidemia Assessment/Plan Continue current supportive medical care. DC planning. GI consulted. Continued on Protonix 40 mg IV BID. Recommended for EGD as outpatient. Daily lab monitoring; electrolyte replacement prn. Continued on Lantus 10 units and Lispro 3 units before meals. Mild insulin sliding scale. Accu-checks. IVFs with NS. Cardiac/Diabetic diet. Additional plan as per the hospital course. Dietary Evaluation Review Comments: 1. Downgrade food texture to Mechanical soft CCHO-60 Cardiac diet 2. Monitor PO intake 3. provide oral supplement glucerna BID if PO intake <75% Expected Outcomes/Goals: gradual wt gain Controlled DM Plan discussed with: Patient, Other (RN) DEBORA YOUSIF DO Jan 18, 2025 18:48
--- NOTE | 2025-01-18 21:21 | DVHPN2 ---
Progress Note - Dictate Date Seen: Jan 18, 2025 (Patient seen at bedside at 3:00 p.m.) Has the PT tested + for MRSA If YES, has PT been informed?: No Medical Necessity Reason Pt with a Central, PICC or Fol: No Subjective No new complaints Pt is tolerating diet Denies N/V/abd pain or dysphagia at this time vital signs Vital Sign Date Time Temp Pulse Resp B/P (MAP) Pulse Ox O2 Delivery O2 Flow Rate FiO2 01/18/25 16:20 98.2 80 20 148/75 (99) 97 98.2 01/18/25 08:00 Room Air* 0 21 Total Intake and Output 01/17/25 01/17/25 01/18/25 15:00 23:00 07:00 Intake Total 920 ml 1200 ml Output Total 1200 ml 1200 ml Balance -280 ml 0 ml objective GE: in no acute distress CVS: S1S2+ Lungs: clear Abdomen: soft, nondistended, nontender, BS+ laboratory and microbiology Laboratory Tests 01/17/25 06:18 Test 01/17/25 06:18 Range/Units Serum Glucose 169 H 74-106 mg/dL Problems(with codes): (1) Cervical lymphadenopathy (2) Dysphagia (3) Sensation of foreign body (4) Uncontrolled diabetes mellitus Prognosis Assessment plan At this time patient's symptoms of foreign body sensation and dysphagia have resolved Patient is tolerating diet and does not want any further workup Continue Protonix 40 mg p.o. daily Discharge planning in progress Outpatient follow up with GI Services for ongoing management and to consider elective panendoscopy Once again thank you for allowing GI to participate in the care of this patient Dietary Evaluation Review Comments: 1. Downgrade food texture to Mechanical soft CCHO-60 Cardiac diet 2. Monitor PO intake 3. provide oral supplement glucerna BID if PO intake <75% Expected Outcomes/Goals: gradual wt gain Controlled DM Plan discussed with: Patient ANDRES VIDAL MD Jan 18, 2025 21:21
--- NOTE | 2025-01-19 23:05 | DVHDS2 ---
Discharge Summary Date of Admission Jan 14, 2025 at 23:37 Date of Discharge: Jan 18, 2025 Admitting Diagnosis DKA Labs/Diagnostic Data: Laboratory Results Test 01/18/25 17:04 01/17/25 06:18 01/16/25 08:25 01/15/25 06:54 POC Glucose 178 mg/dl (70-106) White Blood Count 2.8 10^3/uL (4.4-10.8) Red Blood Count 3.39 10^6/uL (4.5-5.90) Hemoglobin 10.9 g/dL (13.5-17.5) Hematocrit 31.0 % (41.0-53.0) Mean Corpuscular Volume 91.5 fL (80.0-100.0) Mean Corpuscular Hemoglobin 32.2 pg (28.0-32.0) Mean Corpuscular Hemoglobin Concent 35.2 g/dL (32.0-36.0) Red Cell Distribution Width 15.9 % (11.8-14.3) Platelet Count 147 10^3/uL (140-450) Mean Platelet Volume 7.9 fL (6.9-10.8) Neutrophils (%) (Auto) 46.8 % (37.0-80.0) Lymphocytes (%) (Auto) 40.5 % (10.0-50.0) Monocytes (%) (Auto) 9.8 % (0.0-12.0) Eosinophils (%) (Auto) 2.3 % (0.0-7.0) Basophils (%) (Auto) 0.6 % (0.0-2.0) Neutrophils # (Auto) 1.3 10 ^3/uL (1.6-8.6) Lymphocytes # (Auto) 1.2 10 ^3/uL (0.4-5.4) Monocytes # (Auto) 0.3 10 ^3/uL (0-1.3) Eosinophils # (Auto) 0.1 10 ^3/uL (0-0.8) Basophils # (Auto) 0 10 ^3/uL (0-0.2) Nucleated Red Blood Cells 0.2 % Sodium Level 142 mmol/L (136-145) Potassium Level 3.5 mmol/L (3.5-5.1) Chloride Level 112 mmol/L (98-107) Carbon Dioxide Level 20 mmol/L (20-31) Anion Gap 10 (5-15) Blood Urea Nitrogen < 5 mg/dL (9-23) Creatinine 0.59 mg/dL (0.700-1.30) Glomerular Filtration Rate Calc 108 mL/min (>90) BUN/Creatinine Ratio 8.5 (10.0-20.0) Serum Glucose 169 mg/dL (74-106) Calcium Level 8.0 mg/dL (8.7-10.4) Magnesium Level 1.7 mg/dL (1.6-2.6) Lactic Acid Level 1.6 mmol/L (0.4-2.0) Total Bilirubin 1.0 mg/dL (0.2-1.0) Direct Bilirubin 0.3 mg/dL (<0.3) Aspartate Amino Transferase (AST) 55 U/L (13-40) Alanine Aminotransferase (ALT) 54 U/L (7-40) Alkaline Phosphatase 125 U/L (46-116) Total Protein 5.9 g/dL (5.7-8.2) Albumin 3.1 g/dL (3.2-4.8) Random Vancomycin Level 3.7 ug/mL (5-10) Blood Gas Specimen Type Arterial Blood Gas Sample Site Right radial Blood Gas Patient Temperature 37.0 Arterial Blood Date Drawn [id number] Arterial Blood pH 7.461 (7.350-7.450) Arterial Blood Partial Pressure CO2 26.2 mmHg (35.0-48.0) Arterial Blood Partial Pressure O2 93.7 mmHg (83.0-108.0) Arterial Blood HCO3 18.3 mmol/L (21.0-28.0) Arterial Blood Oxygen Saturation 96.8 % (94.0-98.0) Arterial Blood Base Excess -4.3 mmol/L (-2.0-3.0) Arterial Blood Oxyhemoglobin 96.2 % (94.0-98.0) Arterial Blood Carboxyhemoglobin 0.2 % (0.5-1.5) Arterial Blood Methemoglobin 0.4 % (0.0-1.5) Sylvester Test Yes Blood Gas Total Hemoglobin 11.40 g/dL (13.5-17.5) Blood Gas Modality Room air FiO2 % 21.0 Test 01/15/25 04:49 01/15/25 04:40 01/15/25 03:00 01/14/25 20:59 Prothrombin Time 11.7 sec (9.3-11.8) Prothrombin Time INR 1.12 (0.9-1.15) Activated Partial Thromboplast Time 27.6 SEC (24.5-34.5) Beta-Hydroxybutyric Acid 0.351 mmol/L (< 0.4) Salicylates Level < 3.0 mg/dL (-30) Acetaminophen Level < 2.0 UG/ML (10.0-20.0) Urine Color Yellow (Yellow) Urine Clarity Clear (Clear) Urine pH 5.5 (5.0-9.0) Urine Specific [place] 1.035 (1.001-1.035) Urine Protein 1+ (Negative) Urine Ketones Trace (Negative) Urine Blood Negative /uL (Negative) Urine Nitrite Negative (Negative) Urine Bilirubin Negative (Negative) Urine Urobilinogen Normal mg/dL (Negative) Urine Leukocyte Esterase Negative /uL (Negative) Urine RBC <1 /hpf (0 - 3) Urine Microscopic WBC < 1 /HPF (0-3) Urine Squamous Epithelial Cells Few /hpf (<5) Urine Bacteria None seen /hpf (None Seen) Urine Yeast (Budding) Occasional /hpf (None Urine Glucose 4+ mg/dL (Normal) Hemoglobin A1c 11.1 % A1C (<5.7) Serum Osmolality 331 mOsm/kg (278-298) Phosphorus Level 4.8 mg/dL (2.4-5.1) Troponin I High Sensitivity < 3 ng/L (</=54) B-Type Natriuretic Peptide 36.73 pg/mL (0-100) Thyroid Stimulating Hormone (TSH) 2.84 uIU/mL (0.55-4.78) Other Laboratory Tests 01/17/25 06:18 Brief Hx & Hospital Course: Francesco Rosado is a 64-year-old male with a Past Medical History pertinent for Type 2 DM, Hypertension and Hyperlipidemia who presented to the hospital with complaint of choking like sensation while eating at restaurant on 01/14/2025. While in ED, patient's symptoms improved. Initial labs were remarkable for elevated blood sugar level at 510, Anion gap elevated at 17, bicarbonate low at 19. Patient was subsequently admitted to ICU. Gap closed and patient was downgraded. HgbA1C was found severely elevated at 11.1. Continued on Lantus and Lispro insulins along with insulin sliding scale. Patient was also noted with elevated liver enzymes with suspected fatty liver disease. History of ETOH use. Follow up Liver US was normal. Patient complained of dysphagia on multiple occasions. Gastroenterology was subsequently consulted. Patient was continued on Protonix 40 mg IV BID. Patient was also found with pulmonary vascular congestion. Echocardiogram reported LV EF 70%; mild MVP; mild MR; normal TV, PV and aortic valve; no effusion; normal RV function. At this time patient's symptoms of foreign body sensation and dysphagia have improved. Patient is tolerating diet and does not want any further workup. Advised to continue Protonix 40 mg p.o. daily. Outpatient follow up with GI Services for ongoing management and to consider elective panendoscopy recommended. Patient's acute symptoms have overall stabilized and improved. Patient is cleared for discharge to include from specialist standpoint and is stable at the time of discharge. Vitals and nursing notes reviewed. General Appearance: In no acute distress. Head Exam: NC/AT. Pulmonary/Respiratory: Chest non-tender. Clear bilateral breath sounds Cardiovascular/Chest: Regular rate and rhythm. No murmurs. Abdominal Exam: Normal bowel sounds. Soft. Nontender. No hepatospenomegaly. No masses Lower extremities: Negative lower extremity edema Neuro/Mental Status: A&O x4. Coherent Thoughts/Psych: Appropriate mood and affect. Skin Exam: Normal inspection. Normal color. Warm. Dry Consults/Reason for consult Gastroenterology- ANDRES VIDAL MD. Consulted for complaint of dysphagia on multiple occasions. Condition at Discharge: Stable Final Diagnosis/Problems List DKA,uncontrolled type 2 diabetes Discharge Disposition: Home Discharge Instruct/Medications Diet: Consistent carbohydrate Activity: No Restrictions, As Tolerated Medications: Resume home medications Scheduled Aspirin (Aspirin Childrens), 81 MG PO DAILY, (Reported) Atorvastatin Calcium (Atorvastatin Calcium), 1 TAB PO DAILY, (Reported) Losartan Potassium (Losartan Potassium), 1 TAB PO DAILY, (Reported) Metformin Hydrochloride (Metformin Hcl), 1,000 MG PO BIDWM, (Reported) Sitagliptin Phosphate (Januvia), 1 TAB PO DAILY, (Reported) Scheduled PRN Famotidine (Famotidine), 20 MG PO BID PRN for FOR STOMACH DISTRESS, (Reported) Discharge Statement: "Patient was advised to return to the ER or call 911 if any headaches, dizziness, shortness of breath, chest pain, abdominal pain, bleeding, fevers, or worsening of medical condition. Patient was counseled about treatment plan, medications, possible side effects, patientverbalized understanding. All questions were answered to the best of my ability. This discharge took greater then 30 minutes in planning, reviewing documentation, counseling the patient, and discussing with other team members." ASSESSMENT ASSESSMENT Assessment DKA,uncontrolled type 2 diabetes DEBORA YOUSIF DO Jan 19, 2025 23:05
== END 2025-01-18 20:21 | disposition home or self-care (01) | DRG 871 ==
LOC: ER 18:34 → OVERFLOW 23:37 → DOU IN ICU 01-15 00:57 → ICU CENTRL 01-15 01:00 → WEST WING 01-15 18:22
PROVIDERS: ADMIT Student in an Organized Health Care Education/Training Program; ATTEND Student in an Organized Health Care Education/Training Program
DX: A41.9 Sepsis, unspecified organism (principal); E11.10 Type 2 diabetes mellitus with ketoacidosis without coma; J12.9 Viral pneumonia, unspecified; R13.10 Dysphagia, unspecified; R09.A0 Foreign body sensation, unspecified; I10 Essential (primary) hypertension; E78.5 Hyperlipidemia, unspecified; Z79.899 Other long term (current) drug therapy; Z79.4 Long term (current) use of insulin; Z83.3 Family history of diabetes mellitus; Z82.49 Family history of ischemic heart disease and other diseases of the circulatory system; Z80.3 Family history of malignant neoplasm of breast; Z79.82 Long term (current) use of aspirin; Z79.84 Long term (current) use of oral hypoglycemic drugs
CPT/HCPCS: 36415; 36600; 70360; 71045; 76705; 80048; 80053; 80076; 80202; 80329; 81001; 82010; 82805; 82962; 83036; 83605; 83735; 83880; 83930; 84100; 84443; 84484; 85025; 85610; 85730; 87040; 87081; 87086; 93306; 96360; 99291; 99292; G0378; J0692; J1815; J2470